=== PATIENT | female | born 1930 | race Caucasian/White ===

== ENCOUNTER 2016-08-06 03:49 | Inpatient (IN) ==
[2016-08-06] MEDS ORDERED: DUONEB (A & A) INH ONE ×2 (03:57→04:34)
[2016-08-06] MEDS ORDERED: ALBUTEROL NEB INH ONE ×2 (03:57→04:34)
[2016-08-06] MEDS ORDERED: SOLU-MEDROL IV ONE (03:58)
--- NOTE | 2016-08-06 04:05 | PROVIDER DOCUMENTATION ---
HPI-Respiratory General - General Chief Complaint: Anxiety Stated Complaint: anxiety, SOB Time Seen by Provider: 08/06/16 03:51 Source: patient, EMS Allergies/Adverse Reactions: Patient Allergies Allergy/AdvReac Type Severity Reaction Status Date / Time alendronate sodium AdvReac Unknown Verified 08/06/16 04:44 [From Fosamax] amoxicillin trihydrate * AdvReac Unknown Verified 08/06/16 04:44 [From Augmentin] cefdinir AdvReac Unknown Verified 08/06/16 04:44 celecoxib [From Celebrex] AdvReac Unknown Verified 08/06/16 04:44 doxycycline AdvReac Unknown Verified 08/06/16 04:44 ibandronate sodium AdvReac Unknown Verified 08/06/16 04:44 [From Boniva] levofloxacin [From Levaquin] AdvReac Unknown Verified 08/06/16 04:44 lovastatin AdvReac Unknown Verified 08/06/16 04:44 potassium clavulanate * AdvReac Unknown Verified 08/06/16 04:44 [From Augmentin] rosuvastatin calcium * AdvReac Unknown Verified 08/06/16 04:44 [From Crestor] Sulfa (Sulfonamide AdvReac Unknown Verified 08/06/16 04:44 Antibiotics) sulfamethoxazole AdvReac Unknown Verified 08/06/16 04:44 [From Bactrim] trimethoprim [From Bactrim] AdvReac Unknown Verified 08/06/16 04:44 Home Medications: Home Medication List Medication Instructions Recorded Confirmed Last Taken Type Fluticasone/Salmet 500/50 INH 1 inhaler INH BID 06/15/15 08/06/16 08/05/16 History [Advair 500/50 Diskus] Levothyroxine Sodium [Synthroid] 88 mcg PO DAILY 06/15/15 08/06/16 08/05/16 History Losartan [Cozaar] 50 mg PO DAILY 06/15/15 08/06/16 08/05/16 History Triamterene/Hctz [Maxzide-25] 0.5 tab PO DAILY #0 06/22/15 08/06/16 08/05/16 Rx Albuterol 2.5MG/Ipratrop 0.5MG 3 ml INH RTQ4H #90 neb 05/13/16 08/06/16 Rx [Duoneb (A & A)] Prednisone 5 mg PO DIRECTED #36 tablet 05/13/16 08/06/16 08/05/16 Rx Azithromycin [Azithromycin] 1 tab PO DAILY 08/06/16 08/06/16 08/05/16 History Losartan Potassium 1 tab PO DAILY 08/06/16 08/06/16 08/05/16 History - History of Present Illness-Resp Nature of Presenting Problem: pt states that she has had chest congestion for about a week and was put on an unknown antibiotic and steroids however despite this tonight she woke up just [employer] having great difficulty breathing. Ambulance gave pt an albuterol neb with transcient help. She does not believe that she has had fevers. No nausea. No chest pain or leg edema Review of Systems - Adult - REVIEW OF SYSTEMS - ADULT Constitutional: denies: chills, fever Eyes: denies: discharge Ears, Nose, Mouth & Throat: denies: ear pain, sinus problem, throat pain Cardiovascular: denies: chest pain, edema, syncope Respiratory: reports: cough, shortness of breath, wheezing. denies: excessive sputum production, pleurisy Gastrointestinal: denies: abdominal pain, diarrhea, nausea, vomiting Genitourinary: denies: dysuria, flank pain Musculoskeletal: denies: back pain Integumentary: denies: rash Neurological: denies: headache/migraines, numbness, paresthesia Psychiatric: reports: no symptoms reported Endocrine: reports: no symptoms reported Hematologic/Lymphatic: reports: no symptoms reported Allergic/Immunologic: reports: no symptoms reported All Other Systems: Reviewed and Negative Past History - Adult - PAST MEDICAL HISTORY-ADULT Review of Records: reports: Old Records Reviewed, Nursing Assessment Review, Medications Reviewed, Social history reviewed & non-contributory. Major Childhood Illnesses: reports: denies history Cardiovascular: reports: HTN Respiratory: reports: asthma Additional History: Breast cancer - PRIOR SURGERIES/PROCEDURES Surgical/Procedure History: reports: other (Mastectomy ) - PRIOR HOSPITALIZATIONS Prior Hospitalizations: reports: none - IMMUNIZATION STATUS Childhood Immunizations: See Nurse Assessment Flu Vaccine: See Nurse Assessment - FAMILY HISTORY Family History: reviewed, not pertinent - SOCIAL HISTORY Smoking: quit greater than 1 year (quit 25 years ago) Substance Use: none/never Living Situation: other (assisted living) Physical Exam-General - PHYSICAL EXAM-ADULT Initial Vital Signs Reviewed: Yes - CONSTITUTIONAL General Appearance: alert, moderate distress - EYES Eyes: pink conjunctivae. negative: scleral icterus - HEAD, EARS, NOSE, MOUTH & THROAT HENMT: normocephalic/atraumatic, TMs normal, pharynx normal - NECK Neck: non-tender, full range of motion, supple, normal inspection - RESPIRATORY Respiratory: chest non-tender, no pleuratic chest pain, respiratory distress ( moderate), accessory muscle use, wheezing, increased rate. negative: lungs clear, normal breath sounds, no respiratory distress, no accessory muscle use - CARDIOVASCULAR Cardiovascular: no edema, no murmur, tachycardia - GASTROINTESTINAL (ABDOMEN) Abdominal Exam: normal bowel sounds, non tender, soft, no organomegaly, no pulsatile mass - MUSCULOSKELETAL Back Exam: normal inspection, no CVA tenderness, no vertebral tenderness Extremity: non-tender, normal inspection, no pedal edema, no calf tenderness - SKIN Integumentary: normal color, normal turgor, warm/dry - NEUROLOGIC Neurologic: grossly normal, no motor/sensory deficits - PSYCHIATRIC Psych/Mental Status: normal mood/affect, normal thought content, normal thought process, oriented x 3 Progress - PLAN OF CARE/RESULTS Progress/Plan/Lab Results: Vital Signs - 8 hr 08/06/16 04:34 Temperature 98.0 F Pulse Rate 119 H Respiratory Rate 26 H Blood Pressure 140/80 O2 Sat by Pulse Oximetry 92 L Laboratory Results - last 24 hr 08/06/16 08/06/16 08/06/16 04:05 04:20 04:20 WBC 19.44 H RBC 4.37 Hgb 14.0 Hct 41.7 MCV 95.4 MCH 32.0 H MCHC 33.6 RDW Std Deviation 14.4 Plt Count 276 MPV 10.2 Immature Gran % (Auto) 0.4 Neut % (Auto) 62.7 Lymph % (Auto) 23.0 [place] % (Auto) 8.7 Eos % (Auto) 4.7 Baso % (Auto) 0.5 Immature Gran # (Auto) 0.08 H Neut # (Auto) 12.18 H Lymph # (Auto) 4.48 H [place] # (Auto) 1.70 H Eos # (Auto) 0.91 H Baso # (Auto) 0.09 Specimen Type ARTERIAL Sample Site R RADIAL pH 7.41 pCO2 45 pO2 58 L HCO3 27.2 H Base Excess 3.2 H Oxyhemoglobin 90.7 L ABG O2 Sat (Calculated) 18.3 ABG O2 Saturation 94.6 L ABG Carboxyhemoglobin 2.60 H ABG Methemoglobin 1.5 Guerrero Test YES A-a O2 Difference 114.0 Total Hemoglobin 14.4 Lactate 2.00 Liter Flow 3.0 Blood Gas Modality CANNULA FiO2 % 32.0 Sodium 141 Potassium 3.5 Chloride 100 Carbon Dioxide 26 Anion Gap 15 BUN 11 Creatinine 0.7 Estimated GFR/1.73 m2 > 60 BUN/Creatinine Ratio 16 Glucose 123 H Calculated Osmolality 282 Calcium 9.1 Total Bilirubin 0.80 AST 19 ALT 18 Alkaline Phosphatase 77 Troponin T Total Protein 7.3 Albumin 3.7 Globulin 3.6 Albumin/Globulin Ratio 1.0 08/06/16 04:20 WBC RBC Hgb Hct MCV MCH MCHC RDW Std Deviation Plt Count MPV Immature Gran % (Auto) Neut % (Auto) Lymph % (Auto) [place] % (Auto) Eos % (Auto) Baso % (Auto) Immature Gran # (Auto) Neut # (Auto) Lymph # (Auto) [place] # (Auto) Eos # (Auto) Baso # (Auto) Specimen Type Sample Site pH pCO2 pO2 HCO3 Base Excess Oxyhemoglobin ABG O2 Sat (Calculated) ABG O2 Saturation ABG Carboxyhemoglobin ABG Methemoglobin Guerrero Test A-a O2 Difference Total Hemoglobin Lactate Liter Flow Blood Gas Modality FiO2 % Sodium Potassium Chloride Carbon Dioxide Anion Gap BUN Creatinine Estimated GFR/1.73 m2 BUN/Creatinine Ratio Glucose Calculated Osmolality Calcium Total Bilirubin AST ALT Alkaline Phosphatase Troponin T < 0.010 Total Protein Albumin Globulin Albumin/Globulin Ratio Orders Category Date Time Status CHEST-PORTABLE [RAD] Stat Exams 08/06/16 03:58 Taken ABG [RESP] Routine Lab 08/06/16 04:02 Ordered ABG [RESP] Routine Lab 08/06/16 04:05 Completed BNP [PRO B-NATRIURETIC PEPTIDE] Stat Lab 08/06/16 04:20 Received CBC WITH ELECTRONIC DIFF [HEME] Stat Lab 08/06/16 04:20 Completed CMP [COMPREHENSIVE METABOLIC PANEL] [CHEM] Stat Lab 08/06/16 04:20 Completed LACTATE, PLASMA [CHEM] Stat Lab 08/06/16 04:20 Received TROPONIN T Stat Lab 08/06/16 04:20 Completed Albuterol 2.5MG/Ipratrop 0.5MG [Duoneb (A & A)] Med 08/06/16 03:57 Discontinued 3 ml INH NOW ONE Albuterol 2.5MG/Ipratrop 0.5MG [Duoneb (A & A)] Med 08/06/16 04:34 Discontinued 3 ml INH NOW ONE Albuterol [Albuterol Neb] Med 08/06/16 03:57 Discontinued 5 mg INH NOW ONE Albuterol [Albuterol Neb] Med 08/06/16 04:34 Discontinued 5 mg INH NOW ONE Levofloxacin 750 mg/D5w [Levaquin 750 mg/D5w] Med 08/06/16 05:02 Active 750 mg in 150 ml IV NOW Methylprednisolone Sod Succ [Solu-Medrol] Med 08/06/16 03:58 Discontinued 125 mg IV NOW ONE Aerosol Treatments Routine Ot 08/06/16 03:57 Active Aerosol Treatments Routine Ot 08/06/16 04:34 Active Aerosol Treatments Stat Ot 08/06/16 03:57 Active Aerosol Treatments Stat Ot 08/06/16 04:34 Active BIPAP Stat Ot 08/06/16 04:21 Active Result Diagrams: 08/06/16 04:20 08/06/16 04:20 - REASSESSMENT Reassessment #1 Time Reassessed: 04:36 (pt placed on BiPap which she is tolerating well and pt states is helping her breath easier, she still has marked wheezing present so another round of nebs ordered) Status: improving Reassessment #2 Time Reassessed: 05:03 (pt breathing easier, still wheezing but has improved) Status: improving - EKG 1 Time of EKG reading by physician:: 04:08 EKG Interpretation (*Must complete 3 of following elements*): Abnormal Rate: 117 Rhythm: sinus tach [place]: normal QRS: normal [place] Interval: normal ST Wave: non-specific ST changes - XRAY 1 XRAY Study: Chest Impression: Normal Departure - Departure Time of Disposition Decision: 05:03 DIAGNOSIS: COPD exacerbation Disposition: ADMITTED INPATIENT 09 Certified Medical Emergency: Emergent Condition: Fair Referrals and Follow-Ups: Surinder hCerry MD [Primary Care Provider] - - Critical Care Note This patient required my direct personal management.: No
[2016-08-06 04:15] LABS: ALLEN TEST YES; BE 3.2 mmoll (-3.0-3.0); BLOOD TYPE ARTERIAL; DRAW SITE R RADIAL; METHB 1.5 % (0.0-1.5); O2(CT) 18.3 mL/dL (15.0-23.0); PCO2(98.6) 45 mmHg (35-45); PO2(98.6) 58 mmHg (60-100); SAMPLE BLOOD; SAO2 94.6 % (95.0-100.0); THB 14.4 g/dL (11.5-17.4); pH(98.6) 7.41 (7.35-7.45)
[2016-08-06 04:16] LABS: MODALITY CANNULA
[2016-08-06 04:35] LABS: MANUAL DIFF NEEDED? NO
[2016-08-06 04:37] LABS: BASO% 0.5 % (0.0-0.8); EOS# 0.91 X1000 (0.0-0.7); EOS% 4.7 % (0.0-10.0); HEMATOCRIT 41.7 % (37.0-47.0); IMM GRAN# 0.08 X1000 (0.0-0.04); IMM GRAN% 0.4 % (0.0-0.5); LYMPH# 4.48 X1000 (1.2-3.4); MCHC 33.6 g/dL (33-37); MCV 95.4 FL (81-99); MONO% 8.7 % (1.7-9.3); MPV 10.2 FL (7.4-10.4); NEUT% 62.7 % (42.2-75.2); PLT 276 X1000 (130-400); RBC 4.37 XMIL (4.2-5.4)
[2016-08-06 05:01] LABS: AGAP 15; ALBUMIN 3.7 g/dL (3.5-5.0); ALKALINE PHOSPHATASE 77 U/L (32-104); BUN 11 mg/dL (8-22); CALCIUM 9.1 mg/dL (8.8-10.2); CHLORIDE 100 mmol/L (98-107); COSMO 282; GOT 19 U/L (10-30); GPT 18 U/L (10-36); POTASSIUM 3.5 mmol/L (3.5-5.1); SODIUM 141 mmol/L (136-145); TCO2 26 mmol/L (25-35); TOTAL PROTEIN 7.3 g/dL (6.3-8.3)
[2016-08-06] MEDS ORDERED: LEVAQUIN 750 MG/D5W 750 MG/150 ML IVPB IV ONE (05:02)
[2016-08-06] MEDS ORDERED: ZOFRAN IV PRN (06:20)
[2016-08-06] MEDS ORDERED: SOLU-MEDROL IV SCH (06:20)
[2016-08-06] MEDS: DUONEB (A & A) INH SCH ×4 (07:18→22:43)
[2016-08-06] MEDS: SYNTHROID PO SCH (07:32)
[2016-08-06] MEDS: COZAAR PO SCH (08:27)
--- NOTE | 2016-08-06 08:53 | HISTORY AND PHYSICAL ---
PRIMARY CARE PHYSICIAN: Dr. Surinder Cherry. CHIEF COMPLAINT: Shortness of breath. HISTORY OF PRESENTING ILLNESS: An 86-year-old elderly female with a history of chronic asthma, hypertension, hypogammaglobinemia and hypertriglyceridemia, presented to the emergency department with 1-week history of having worsening shortness of breath and cough symptoms. She was treated for bronchitis earlier in the week and was taking antibiotics and was on steroids; however, the patient was not improving. She was getting more short of breath and she states that she was having difficulty breathing and subsequently had come to the emergency department. In the ER, she was in respiratory distress. She was given continuous albuterol nebs and started on IV Solu- Medrol and put on BiPAP. She had some improvement. Due to her presenting symptoms, it was thought that she would need hospitalization for further management. At the time of my examination, she denied any headache, visual changes, fever, chills, chest pain , hemoptysis, melena, or any weight changes but complained of shortness of breath. PAST MEDICAL HISTORY: Chronic asthma, COPD, hypertension, hyperlipidemia, hypogammaglobulinemia. PAST SURGICAL HISTORY: Hysterectomy, left mastectomy, cholecystectomy, back surgeries x5, right knee replacement. ALLERGIES: Amoxicillin, Ceftin ER, Celebrex. CURRENT MEDICATIONS: As listed in the MAR. SOCIAL HISTORY: She is a former smoker. History of social alcohol use in the past. She denies any illicit drug use. She lives alone. FAMILY HISTORY: No history of coronary disease. REVIEW OF SYSTEMS: Twelve-point review of systems is as in the HPI. Other systems negative. PHYSICAL EXAMINATION: GENERAL: Cooperative, friendly, elderly female. She is in some mild-to- moderate respiratory distress. VITAL SIGNS: Temperature 98 degrees, pulse 119, respiration 26, blood pressure 140/80. She is saturating 92%. HEENT: Atraumatic, normocephalic. Extraocular movements intact. PERRLA. NECK: No masses. CHEST: Rhonchi. CARDIOVASCULAR: Regular rate and rhythm. ABDOMEN: Soft. Positive bowel sounds. EXTREMITIES: No edema. NEUROLOGIC: She is awake, alert, oriented x3. GENITOURINARY: No bladder distention. SKIN: Warm. LABORATORIES AND STUDIES: WBCs 19.44, hemoglobin 14.01, hematocrit 41.7, platelets 276,000. Sodium 141, potassium 3.5, chloride 100, CO2 is 26, BUN is 11, creatinine 0.7, glucose is 123. ASSESSMENT: An 86-year-old elderly female with a history of chronic asthma, chronic obstructive pulmonary disease, hypertension, hypogammaglobulinemia. She had presented to the emergency department with a 1-week history of having worsening shortness of breath and cough. She apparently had failed outpatient treatment and, subsequently, needs hospitalization for management. 1. Acute respiratory failure. 2. Acute chronic obstructive pulmonary disease exacerbation. 3. Hypertension. 4. h/o hypogammaglobinemia PLAN: 1. We will admit the patient to the medical floor with telemetry. 2. We will continue with BiPAP. 3. We will start the patient on IV Solu-Medrol, IV antibiotics and DuoNeb. 4. We will monitor blood pressure closely and resume antihypertensive agents. 5. Put patient on deep venous thrombosis prophylaxis with sequential compression devices. 6. We will continue to follow and reassess. cc: MD Surinder Rodriguez MD MTDD
[2016-08-06] MEDS: SOLU-MEDROL IV SCH ×2 (09:50→17:53)
--- NOTE | 2016-08-06 11:21 | Diag Imaging Result Document ---
PROCEDURE NAME: CHEST-PORTABLE - 08/06/2016 PORTABLE CHEST: COMPARISON: 05/11/2016. FINDINGS: Heart size is normal. There is some prominence of central markings which appears to be chronic. There is no dense consolidation, pleural effusion, or pneumothorax identified. Central venous catheter remains in place. IMPRESSION: Some prominence of central markings which appears to be chronic. No other evidence of acute disease.
--- NOTE | 2016-08-06 11:43 | PROGRESS NOTE ---
DATE: 08/06/[address] Cherry' patient and has been treated recently. Has had increased bronchospasm and increased cough and bronchial irritation, shortness of breath and it got worse last night. Came into the emergency room. She has remained afebrile. She feels like she is breathing a little better. She does have a deep raspy cough. You can hear some audible wheezing and expiratory wheezing.Vital signs: Temperature 98.2 degrees, pulse 108, respirations 35, blood pressure 120/77. HEENT: Pupils are equal round. CVP less than 6 cm. Lungs: Clear in all lung clemente. Cardiovascular: Regular rhythm and rate without murmur or S3. Abdomen: Soft. Skin: Is warm and dry. LAB: White count 74051, hematocrit 41, platelet count 276,000. She has been on prednisone. Normal differential. Sodium 141, potassium 3.5, chloride 100, bicarb 26, BUN 11, creatinine 0.7. Liver functions unremarkable. Albumin 3.6. Urinalysis unremarkable. Blood gas, pH 7.41, pCO2 45 with a PO2 of 58. That is on 32% FiO2. Chest x-ray, expanded lung clemente consistent with COPD. I do not see a definite infiltrate. Cardiomediastinal silhouette unremarkable. ASSESSMENT AND PLAN: 1. History of COPD. 86-year-old, chronic asthma, history of hypertension, hypogammaglobulinemia, hypertriglyceridemia. She has had a 1-week history of worsening shortness of breath, cough symptoms and followed by Dr. Cherry. Was taking antibiotics and steroids however seemed to get more short of breath. Plan to admit. Continue bronchodilators. She is on the Levaquin 500 mg IV daily. She is getting albuterol ipratropium, bronchodilators and she is on methylprednisone 60 mg IV q.8 hours. I will probably put her on a steroid inhaler as well. 2. Hypertension. Blood pressures appear well controlled. 3. Nutrition, looks good at this point. I suspect a major element is bronchitis with her deep raspy cough. cc: MD Surinder Naidu MD
[2016-08-06] MEDS: ADVAIR 250/50 DISKUS INH SCH ×2 (15:37→20:18)
[2016-08-06] MEDS: TESSALON PO PRN (20:37)
[2016-08-07] MEDS: TESSALON PO PRN ×4 (00:32→22:25)
[2016-08-07] MEDS: SOLU-MEDROL IV SCH ×3 (01:45→16:31)
[2016-08-07] MEDS: DUONEB (A & A) INH SCH ×2 (04:13→07:18)
[2016-08-07] MEDS: LEVAQUIN 500 MG/D5W 500 MG/100 ML IVPB IV SCH (05:40)
[2016-08-07] MEDS: SYNTHROID PO SCH ×2 (05:41→06:44)
[2016-08-07 05:56] LABS: BASO% 0.1 % (0.0-0.8); HEMATOCRIT 40.5 % (37.0-47.0); HEMOGLOBIN 13.6 g/dL (12.0-16.0); IMM GRAN# 0.07 X1000 (0.0-0.04); IMM GRAN% 0.5 % (0.0-0.5); LYMPH# 1.21 X1000 (1.2-3.4); LYMPH% 8.4 % (20.5-51.1); MANUAL DIFF NEEDED? YES; MCH 31.8 PG (27-31); MCHC 33.6 g/dL (33-37); MCV 94.6 FL (81-99); MONO# 0.69 X1000 (0.11-0.59); MONO% 4.8 % (1.7-9.3); NEUT% 86.2 % (42.2-75.2); PLT 295 X1000 (130-400); RBC 4.28 XMIL (4.2-5.4)
[2016-08-07 06:09] LABS: LYMPHS 10 % (21-51)
[2016-08-07 06:18] LABS: AGAP 15; BUN 14 mg/dL (8-22); CALCIUM 9.5 mg/dL (8.8-10.2); CHLORIDE 102 mmol/L (98-107); COSMO 288; POTASSIUM 4.1 mmol/L (3.5-5.1); SODIUM 142 mmol/L (136-145); TCO2 25 mmol/L (25-35)
[2016-08-07] MEDS: ADVAIR 250/50 DISKUS INH SCH ×2 (07:18→23:35)
[2016-08-07] MEDS ORDERED: NS NEB INH SCH ×2 (10:45→17:45)
[2016-08-07] MEDS: COZAAR PO SCH (11:16)
[2016-08-07] MEDS: XOPENEX NEB INH SCH ×4 (11:23→23:36)
[2016-08-07] MEDS: ATROVENT NEB INH SCH ×4 (11:23→23:35)
[2016-08-07] MEDS: HUMALOG SUBQ SCH ×4 (12:05→22:27)
--- NOTE | 2016-08-07 22:02 | PROGRESS NOTE ---
DATE: 08/07/2016 SUBJECTIVE: The patient's chart was reviewed. 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 Patient was seen in the emergency department and treated with albuterol nebulizer treatment, Solu-Medrol, and BiPAP. With aggressive measures, patient's overall condition has improved. This morning, the patient does continue to appear dyspneic. However, she states overall she has improved considerably from admission. She continues to have some wheezing but denies fevers, chills, nausea, and vomiting. Her cough remains intermittent. With minimal exertion, patient is profoundly short of breath. OBJECTIVE: Vital Signs: T-max is 98.4 degrees, heart rate 104-116, respirations 18-26, blood pressure 121-138/55-77. General: Elderly in no acute distress. Cardiovascular: Slightly tachycardic. Regular rhythm. No significant murmurs, rubs, or gallops. Pulmonary: Bilateral wheezing. Compromised air movement. Abdomen: Soft, nontender, nondistended. Positive bowel sounds. Extremities: Moves all extremities well. No significant clubbing, cyanosis, or edema. Dermatologic: Evaluation reveals no evidence of rash. LABORATORY DATA: White blood cell count 14.44, hemoglobin 13.6, hematocrit 40.5, platelet count 295,000. Sodium 142, potassium 4.1, chloride 102, bicarb 25, BUN 14, creatinine 0.7, glucose 178. ASSESSMENT AND PLAN: 1. Acute exacerbation of chronic obstructive pulmonary disease - The patient has longstanding disease with multiple exacerbations. It appears the patient again experienced a significant exacerbation requiring emergent hospitalization. On examination today, patient continues to have wheezing, although per her description, this has improved. We will transition patient from Solu-Medrol 60 mg every 8 hours to 80 mg every 8 hours. We will convert the patient from albuterol to Xopenex as she has had difficulty tolerating albuterol in the past. We will encourage incentive spirometry. We will continue levofloxacin therapy. We will consider whether a CT scan evaluation is appropriate depending on her progression while hospitalized. We will remain aware that with the patient's deconditioned state, she is less ambulatory than previous. This certainly would increase her risk for underlying pulmonary thromboembolism. 2. Hypoxia - We will continue oxygen per protocol. The patient's oxygen demands have increased above her baseline. We will follow this. 3. Hypogammaglobulinemia - Patient is currently being treated with outpatient IVIG. We will remain aware. 4. Impaired fasting glucose/hyperglycemia - The patient's blood sugars are elevated today, likely secondary to steroid intervention. We will start sliding scale insulin. 5. Hypertension - We will continue patient on her home regimen. 6. Persistent cough. - This likely is a bronchospasm equivalent. We will treat aggressively as above. 7. Hypothyroidism - We will continue her home regimen. 8. Disposition - At this point, patient continues to require usp care in the hospital setting. We will plan discharge home once appropriate. cc: Surinder Cherry MD
[2016-08-08] MEDS: SOLU-MEDROL IV SCH ×3 (02:32→16:47)
[2016-08-08] MEDS: ATROVENT NEB INH SCH ×7 (02:44→23:29)
[2016-08-08] MEDS: XOPENEX NEB INH SCH ×7 (02:45→23:30)
[2016-08-08] MEDS: LEVAQUIN 500 MG/D5W 500 MG/100 ML IVPB IV SCH (05:11)
[2016-08-08] MEDS: SYNTHROID PO SCH ×2 (05:11→08:55)
[2016-08-08] MEDS: HUMALOG SUBQ SCH ×4 (06:16→20:10)
[2016-08-08] MEDS: ADVAIR 250/50 DISKUS INH SCH ×2 (07:10→19:30)
[2016-08-08] MEDS: COZAAR PO SCH (08:54)
[2016-08-08] MEDS: LOVENOX SUBQ SCH (08:54)
[2016-08-08] MEDS: MYCOSTATIN SUSP PO SCH ×4 (10:11→20:08)
[2016-08-08] MEDS: TESSALON PO PRN ×2 (14:54→22:04)
--- NOTE | 2016-08-08 16:34 | EKG Report ---
Test Performed on : 08/06/2016 04:07:54 AM Test Reason : ED. Not ordered in [place] Blood Pressure : / mmHG Vent. Rate : 117 BPM Atrial Rate : 117 BPM P-R Int : 138 ms QRS Dur : 074 ms QT Int : 340 ms P-R-T Axes : 081 034 077 degrees QTc Int : 474 ms Sinus tachycardia. Nonspecific ST and T wave abnormality Abnormal ECG When compared with ECG of 14-MAY-2011 18:01, ST now depressed in Inferior leads Nonspecific T wave abnormality now evident in Inferior leads Unconfirmed Result
[2016-08-08] MEDS: XOPENEX NEB INH PRN (17:56)
--- NOTE | 2016-08-08 21:17 | CONSULTATION ---
DATE OF CONSULTATION: 08/08/2016 REQUESTING PHYSICIAN: Dr. Surinder Cherry. REASON FOR CONSULTATION: Asthma exacerbation. HISTORY OF PRESENT ILLNESS: Ms. Jerome is an 86-year-old white female with remote history of tobacco use, history of adult-onset asthma, history of common variable immunodeficiency, on immunoglobulin replacement, who requires frequent courses of steroids and antibiotics. The patient has multiple drug allergens,including amoxicillin, Ceftin, Bactrim, and doxycycline. The patient recently failed outpatient course of treatment, and presented to the emergency room with acute respiratory distress requiring BiPAP. She was initiated on steroids and antibiotics while on nebulizer therapy. Clinically, she is improving, but has dyspnea with minimal exertion. She reports she has not yet returned to her baseline. PAST MEDICAL HISTORY: 1. Asthma with hypogammaglobulinemia. She is on replacement therapy every 3 weeks. 2. Hypertension. 3. Dyslipidemia. 4. Status post multiple back surgeries. 5. Breast cancer, with mastectomy. 6. Status post hysterectomy. SOCIAL HISTORY: Patient smoked for approximately 5 years. Occasional alcohol use. FAMILY HISTORY: Noncontributory to current presentation. REVIEW OF SYSTEMS: Notable for shortness of breath, cough productive of copious amounts of green sputum which has diminished, dysphagia, which is improving with nystatin. PHYSICAL EXAMINATION: General: Reveals a chronically ill-appearing white female, resting comfortably, and in no distress. Vital Signs: Blood pressure 122/60, heart rate 103, respiration rate 16, oxygen saturation 96% on nasal cannula at 5 L. HEENT: Pupils are equal and reactive. Oropharynx is clear. No obvious thrush is identified. Neck: Supple. Chest: Reveals prolonged expiratory phase, with scattered wheezing. Cardiac: Regular rate. Abdomen: Soft, and without hepatosplenomegaly. Extremities: Without edema. LABORATORY STUDIES: All sputum cultures from the past have been reviewed, and only revealed normal kyle. Chest x-ray revealed prominence of the central vascular markings, but no acute changes. 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 Her sputum production has diminished, but has not completely resolved. Her bronchospasm has diminished, but has not completely resolved. She has some dysphagia, possibly related to candidal esophagitis. RECOMMENDATIONS: 1. Attempt to collect sputum for culture and sensitivity. She is not currently receiving a Gram positive coverage, and is allergic to both doxycycline and Bactrim. 2. Continue bronchodilators as you are doing. 3. Continue steroids as you are doing. 4. Will check an immunoglobulin level to see if she is deficient. She is currently receiving doses every 3 weeks. If the level is low, she might need this supplemented. 5. Additional recommendations pending hospital course. cc: MD Surinder Cheng MD
--- NOTE | 2016-08-08 23:07 | PROGRESS NOTE ---
DATE: 08/08/2016 SUBJECTIVE: Overall, patient's condition is very slowly improving. Patient continues to have a persistent cough but notes a decrease in shortness of breath and wheezing. Energy level remains low. Her p.o. intake is reasonable. She denies fevers, chills, nausea, vomiting or chest discomfort. OBJECTIVE: Vital signs: T-max 98.3 degrees, heart rate 91-110, respirations 16-20, blood pressure 122-163 over 60-81. General: Elderly, no acute distress. Cardiovascular: Regular rate and rhythm. No significant murmurs, rubs or gallops. Pulmonary: Occasional wheezing bilaterally, reasonable air movement. Abdomen: Soft, nontender, nondistended. Positive bowel sounds. Extremities: Moves all extremities well. No significant clubbing, cyanosis, edema. Dermatologic: Evaluation reveals no evidence of rash. LABORATORY DATA: None. ASSESSMENT AND PLAN: 1. Acute exacerbation of chronic obstructive pulmonary disease-patient has longstanding disease. Her overall pulmonary function has improved slightly since admission. For now, we will continue patient on Solu-Medrol 80 mg every 8 hours. We will continue levofloxacin as she is tolerating this well. We will consult Dr. Love to determine if further pulmonary recommendations are appropriate. We will follow patient's clinical course closely. 2. Hypoxia-will continue oxygen per protocol. We will remain aware. 3. Hypogammaglobulinemia-patient treated with outpatient IVIG. We will follow this. 4. Impaired fasting glucose/hyperglycemia-with steroid therapy patient's glucose has increased. We will continue sliding scale insulin. 5. Hypertension-will continue patient on her home regimen. 6. Persistent cough-we will treat bronchospasm as described above. We will continue Tessalon Perles as needed. 7. Hypothyroidism-we will continue patient on her home regimen. 8. Disposition-at this point, patient continues to require [facility]pc care in the hospital setting. We will plan discharge home once appropriate. cc: Surinder Cherry MD
[2016-08-09] MEDS: SOLU-MEDROL IV SCH ×3 (02:25→16:39)
[2016-08-09] MEDS: ATROVENT NEB INH SCH ×6 (03:21→22:50)
[2016-08-09] MEDS: XOPENEX NEB INH SCH ×6 (03:22→22:50)
[2016-08-09] MEDS: LEVAQUIN 500 MG/D5W 500 MG/100 ML IVPB IV SCH (06:29)
[2016-08-09] MEDS: SYNTHROID PO SCH (06:30)
[2016-08-09] MEDS: HUMALOG SUBQ SCH ×4 (06:51→22:53)
[2016-08-09] MEDS: ADVAIR 250/50 DISKUS INH SCH ×2 (08:00→19:25)
[2016-08-09] MEDS: LOVENOX SUBQ SCH (09:23)
[2016-08-09] MEDS: MYCOSTATIN SUSP PO SCH ×4 (09:24→22:53)
[2016-08-09] MEDS: COZAAR PO SCH (09:25)
[2016-08-09] MEDS: TESSALON PO PRN ×2 (14:24→18:47)
--- NOTE | 2016-08-09 22:14 | PROGRESS NOTE ---
DATE: 08/09/2016 SUBJECTIVE: This morning, patient stated she felt poorly. She noted coughing throughout the night. Throughout the day today patient did reasonably well. This evening, she denies significant symptoms. She continues to have cough and congestion, although this is improving. Her shortness of breath also is improving. She remains weak, but is able to ambulate to and from the restroom. She denies fevers, chills, nausea, vomiting, or chest discomfort. OBJECTIVE: Vital signs: Temperature maximum 98.2 degrees, heart rate 91-111, respirations 15- 24, blood pressure 128-145/65-87. General: Elderly, no acute distress. Cardiovascular: Regular rate and rhythm. No significant murmurs, rubs, or gallops. Pulmonary: Minimal wheezing bilaterally. Adequate air movement. Abdomen: Soft, nontender, nondistended. Positive bowel sounds. Extremities: Moves all extremities well. No significant clubbing, cyanosis, or edema. Dermatologic: Evaluation reveals no evidence of rash. LABORATORY DATA: None. PLAN/ASSESSMENT: 1. Acute exacerbation of chronic obstructive pulmonary disease-today, patient pulmonary status has failed to show significant improvement. For now, we will continue high-dose steroids. We will continue levofloxacin and bronchodilators. As patient's overall condition improves, we will consider titrating down on steroid therapy. I appreciate Dr. Love's consultation. 2. Hypoxia-we will continue patient on oxygen per protocol. She is stable. 3. Hypogammaglobulinemia-immunoglobin levels have been ordered by Dr. Love. We will follow along. 4. Impaired fasting glucose-patient's blood sugars have increased secondary to steroids. We will continue sliding scale insulin. 5. Persistent cough-I suspect the bronchospasm equivalent. We will treat bronchospasm aggressively as noted. 6. Hypothyroidism-we will continue patient on replacement. 7. Disposition-at this point, patient continues to require retirement care in a hospital setting. We will plan discharge home once appropriate. cc: Surinder Cherry MD
[2016-08-10] MEDS: XOPENEX NEB INH SCH ×6 (03:10→22:55)
[2016-08-10] MEDS: ATROVENT NEB INH SCH ×6 (03:10→22:55)
[2016-08-10] MEDS: SOLU-MEDROL IV SCH ×3 (03:58→17:09)
[2016-08-10] MEDS: LEVAQUIN 500 MG/D5W 500 MG/100 ML IVPB IV SCH (06:20)
[2016-08-10] MEDS: SYNTHROID PO SCH (06:21)
[2016-08-10] MEDS: HUMALOG SUBQ SCH ×4 (06:21→22:33)
[2016-08-10] MEDS: ADVAIR 250/50 DISKUS INH SCH ×2 (07:23→19:05)
[2016-08-10] MEDS: LOVENOX SUBQ SCH (08:45)
[2016-08-10] MEDS: COZAAR PO SCH (08:45)
[2016-08-10] MEDS: MYCOSTATIN SUSP PO SCH ×4 (08:45→22:34)
[2016-08-10] MEDS: TESSALON PO PRN ×2 (09:51→22:33)
--- NOTE | 2016-08-10 18:38 | PROGRESS NOTE ---
DATE: 08/10/2016 SUBJECTIVE: The patient's overall condition continues to very slowly improve. Patient continues to have a persistent cough. She notes continued bronchospasm. She did walk with physical therapy today. She did reasonably well. She denies fevers, chills, nausea, vomiting, or chest discomfort. She does note persistent shortness of breath. OBJECTIVE: Vital signs: T-max is 98.2 degrees, heart rate 95-101, respirations 16-20, blood pressure 125-164 over 57-87. General: Elderly, no acute distress. Cardiovascular: Regular rate and rhythm. No significant murmurs, rubs, or gallops. Pulmonary: Coarse breath sounds with wheezing bilaterally. There does appear to be upper airway rhonchi as well. Abdomen: Soft, nontender, nondistended. Positive bowel sounds. Extremities: Moves all extremities well. No significant clubbing, cyanosis, or edema. Dermatologic: Evaluation reveals no evidence of rash. LABORATORY DATA: None. ASSESSMENT AND PLAN: 1. Acute exacerbation of chronic obstructive pulmonary disease - Patient's overall condition is largely unchanged from yesterday. For now, we will continue high dose steroids, levofloxacin, and bronchodilators. I appreciate Dr. Love's consultation. Once patient's condition begins improving, we will initiate steroid taper. 2. Questionable upper airway irritation/obstruction - While the patient does not have a true stridor, patient does have some upper airway symptoms. We will continue nystatin swish and swallow. We will consider an ENT consultation or outpatient evaluation depending on her progress. 3. Hypoxia - Will continue oxygen per protocol. 4. Hypogammaglobulinemia - Patient has longstanding disease. We will remain aware. 5. Impaired fasting glucose - The patient's blood sugars have increased secondary to steroid use. We will continue sliding scale insulin. 6. Persistent cough - I suspect this is a bronchospasm equivalent. We will remain aware that a laryngeal or posterior pharyngeal lesion could also be playing a role. We will continue aggressive management and consider ENT evaluation as an outpatient. 7. Hypothyroidism - We will continue patient on replacement. 8. Disposition - At this point, patient continues to require skilled nurse care in the hospital setting. We will plan discharge home once appropriate. cc: Surinder Cherry MD
[2016-08-10] MEDS ORDERED: DIFLUCAN 100 MG/NS 100 MG/50 ML IVPB IV SCH (21:00)
[2016-08-10] MEDS: DIFLUCAN 100 MG/NS 100 MG/50 ML IVPB IV SCH (22:33)
[2016-08-11] MEDS: SOLU-MEDROL IV SCH ×3 (01:30→17:37)
[2016-08-11] MEDS: ATROVENT NEB INH SCH ×6 (03:25→23:23)
[2016-08-11] MEDS: XOPENEX NEB INH SCH ×6 (03:25→23:23)
[2016-08-11] MEDS: SYNTHROID PO SCH (06:27)
[2016-08-11] MEDS: HUMALOG SUBQ SCH ×4 (06:27→22:35)
[2016-08-11] MEDS: LEVAQUIN 500 MG/D5W 500 MG/100 ML IVPB IV SCH (06:27)
[2016-08-11] MEDS: ADVAIR 250/50 DISKUS INH SCH ×2 (07:39→19:52)
[2016-08-11] MEDS: LOVENOX SUBQ SCH (08:57)
[2016-08-11] MEDS: MYCOSTATIN SUSP PO SCH ×5 (08:57→22:40)
[2016-08-11] MEDS: COZAAR PO SCH (08:57)
[2016-08-11] MEDS: TESSALON PO PRN ×2 (09:22→13:27)
--- NOTE | 2016-08-11 21:24 | PROGRESS NOTE ---
DATE: 08/11/2016 SUBJECTIVE: Overall, patient continues to very slowly improve. This morning, patient complained of persistent dysphagia. Throughout the day with dietary changes, her condition has improved. She continues to have intermittent wheezing, but this also is improving. This morning, we decreased her Solu-Medrol to 40 mg q.8 hours. This evening, her condition is stable. She denies fevers, chills, nausea, vomiting, or chest discomfort. OBJECTIVE: Vital Signs: T-max 98.7 degrees, heart rate 79-101, respirations 16 -20, blood pressure 135-184/60-78. General: Elderly in no acute distress. Cardiovascular : Regular rate and rhythm. No significant murmurs, rubs, or gallops. Pulmonary: Bilateral wheezing, improved from yesterday. Adequate air movement. Abdomen: Soft, nontender, nondistended. Positive bowel sounds. Extremities: Moves all extremities well. No significant clubbing, cyanosis, or edema. Dermatologic: Evaluation reveals no evidence of a rash. LABORATORY DATA: None. ASSESSMENT AND PLAN: 1. Acute exacerbation of chronic obstructive pulmonary disease -Overall, patient 's condition continues to very slowly improve. As above, a steroid taper was initiated. She tolerated Solu-Medrol 40 mg q.8 hours. We will continue antibiotics and bronchodilators. We will monitor patient for the next 24 hours and determine if further titration is warranted. 2. Questionable upper airway irritation/obstruction - The patient is currently being treated with Nystatin Swish and Swallow, and Diflucan therapy. Her condition is slightly improved from yesterday. I have stressed the importance of aspiration precautions. We will consider an ENT consultation as an outpatient. 3. Hypoxia - We will continue oxygen per protocol. 4. Hypogammaglobulinemia - Patient has longstanding disease. We will remain aware. 5. Impaired fasting glucose - The patient's blood sugars have been elevated with steroid therapy. We will continue sliding scale insulin. 6. Hypothyroidism - We will continue patient on replacement. 7. Disposition - At this point, patient continues to require halfway care in a hospital setting. We will plan discharge home once appropriate. cc: Surinder Cherry MD MTDD
[2016-08-11] MEDS: DIFLUCAN 100 MG/NS 100 MG/50 ML IVPB IV SCH (22:35)
[2016-08-12] MEDS: SOLU-MEDROL IV SCH ×2 (02:01→16:11)
[2016-08-12] MEDS: XOPENEX NEB INH SCH ×6 (03:25→23:02)
[2016-08-12] MEDS: ATROVENT NEB INH SCH ×6 (03:25→23:02)
[2016-08-12] MEDS: LEVAQUIN 500 MG/D5W 500 MG/100 ML IVPB IV SCH (05:44)
[2016-08-12] MEDS: SYNTHROID PO SCH (06:23)
[2016-08-12] MEDS: HUMALOG SUBQ SCH ×4 (06:25→22:02)
--- NOTE | 2016-08-12 06:56 | EKG Report ---
Test Performed on : 08/12/2016 06:38:42 AM Test Reason : evaluated qtc Blood Pressure : / mmHG Vent. Rate : 093 BPM Atrial Rate : 093 BPM P-R Int : 134 ms QRS Dur : 088 ms QT Int : 376 ms P-R-T Axes : 053 -02 053 degrees QTc Int : 467 ms Normal sinus rhythm. Normal ECG When compared with ECG of 06-AUG-2016 04:07, ST no longer depressed in Inferior leads Nonspecific T wave abnormality no longer evident in Inferior leads Confirmed by Claudia KAPLAN, Benito Tolbert ([id number]) on 08/12/2016 9:04:57 AM
[2016-08-12] MEDS: ADVAIR 250/50 DISKUS INH SCH ×2 (08:02→19:17)
[2016-08-12] MEDS: LOVENOX SUBQ SCH (10:19)
[2016-08-12] MEDS: COZAAR PO SCH (10:19)
[2016-08-12] MEDS: MYCOSTATIN SUSP PO SCH ×4 (10:20→22:02)
--- NOTE | 2016-08-12 21:27 | PROGRESS NOTE ---
DATE: 08/12/2016 SUBJECTIVE: Overall, patient's pulmonary condition continues to very slowly improve. The patient continues to have a persistent cough but her shortness of breath and wheezing are improving. Her dysphagia has shown clinical improvement. She denies fevers, chills, nausea, vomiting or chest discomfort. OBJECTIVE: Vital signs: Temperature maximum 98.4 degrees, heart rate 85-107, respirations 17- 22, blood pressure 119-153 over 60-87. General: Elderly, no acute distress. Cardiovascular: Regular rate and rhythm. No significant murmurs, rubs, or gallops. Pulmonary: Distant breath sounds. Occasional wheeze. Abdomen: Soft, nontender, nondistended. Positive bowel sounds. Extremities: Moves all extremities well. No significant clubbing, cyanosis or edema. Dermatologic: Evaluation reveals no evidence of rash. LABORATORY DATA: None. ASSESSMENT AND PLAN: 1. Acute exacerbation of chronic obstructive pulmonary disease- this morning because of the further improvement patient's Solu-Medrol was decreased to 40 mg every 12 hours. This evening patient does have a slight increase in wheezing. For now, we will continue this regimen. We will continue antibiotics and bronchodilators. Will encourage incentive spirometry. We will follow her clinical course closely. 2. Questionable upper airway irritation/obstruction-patient is currently being treated with nystatin swish and swallow and Diflucan therapy. Her condition with associated dysphagia has improved clinically. We will consider ENT evaluation as an outpatient. 3. Hypoxia-we will continue oxygen per protocol. 4. Hypogammaglobulinemia-patient has longstanding disease. We will remain aware. 5. Impaired fasting glucose-the patient's blood sugars have increased associated with steroid use. We will continue sliding scale insulin. 6. Hypothyroidism-we will continue patient on replacement. 7. Profound weakness-we will continue physical therapy. Her condition is slowly improving. 8. Disposition-at this point, patient continues to require [facility] care in the hospital setting. We will plan discharge home once appropriate. cc: Surinder Cherry MD MTDD
[2016-08-12] MEDS: DIFLUCAN 100 MG/NS 100 MG/50 ML IVPB IV SCH (22:01)
[2016-08-13] MEDS: SOLU-MEDROL IV SCH ×2 (02:23→14:51)
[2016-08-13] MEDS: ATROVENT NEB INH SCH ×6 (03:20→22:58)
[2016-08-13] MEDS: XOPENEX NEB INH SCH ×6 (03:20→22:58)
[2016-08-13] MEDS: LEVAQUIN 500 MG/D5W 500 MG/100 ML IVPB IV SCH (05:19)
[2016-08-13] MEDS: SYNTHROID PO SCH (06:25)
[2016-08-13] MEDS: HUMALOG SUBQ SCH ×4 (06:26→21:30)
[2016-08-13] MEDS: ADVAIR 250/50 DISKUS INH SCH ×2 (08:05→19:14)
[2016-08-13] MEDS: XOPENEX NEB INH PRN (08:05)
[2016-08-13] MEDS: COZAAR PO SCH (09:45)
[2016-08-13] MEDS: LOVENOX SUBQ SCH (09:45)
[2016-08-13] MEDS: MYCOSTATIN SUSP PO SCH ×4 (11:26→21:30)
--- NOTE | 2016-08-13 13:33 | PROGRESS NOTE ---
DATE: 08/13/2016 SUBJECTIVE: As on previous days, patient's condition continues to very slowly improve. The patient notes decreasing coughing over the course of the last 24 hours. She does continue to be very weak. She has intermittent wheezing. She denies fevers, chills, nausea, vomiting, or chest discomfort. OBJECTIVE: Vital signs: T-max 98.4 degrees, heart rate 84-111, respirations 15-18, blood pressure 131-179 over 59-87. General: Elderly, no acute distress. Cardiovascular: Regular rate and rhythm. No significant murmurs, rubs, or gallops. Pulmonary: Occasional wheeze bilaterally. Abdomen: Soft, nontender, nondistended. Positive bowel sounds. Extremities: Moves all extremities well. No significant clubbing, cyanosis, or edema. Dermatologic: Evaluation reveals no evidence of rash. LABORATORY DATA: None. ASSESSMENT AND PLAN: 1. Acute exacerbation of chronic obstructive pulmonary disease-the patient's overall condition is fairly stable from yesterday. She does continue to have intermittent wheezing. At this point, I do not feel tapering Solu-Medrol is appropriate. We will continue 40 mg IV q.12 hours. I anticipate in the next 24-48 hours we will transition to prednisone and pursue discharge home or to rehab. We will continue bronchodilators and antibiotic therapy. 2. Questionable upper airway irritation/obstruction-we will continue patient on nystatin swish and swallow and Diflucan therapy. Clinically, she is slowly improving. 3. Hypoxia-we will continue oxygen per protocol. 4. Hypogammaglobulinemia-patient has longstanding disease. We will remain aware. 5. Impaired fasting glucose-patient's blood sugars have been elevated while on steroids. We will continue sliding scale insulin. 6. Hypothyroidism-we will continue patient on replacement. 7. Profound weakness-we will continue patient on physical therapy. At this point, patient may require discharge to rehabilitation. We will determine this in the next 24-48 hours. 8. Disposition-at this point, patient continues to require prison care in a hospital setting. We will plan discharge home once appropriate. cc: Surinder Cherry MD
[2016-08-13] MEDS: DIFLUCAN 100 MG/NS 100 MG/50 ML IVPB IV SCH (21:30)
[2016-08-14] MEDS: SOLU-MEDROL IV SCH (02:22)
[2016-08-14] MEDS: XOPENEX NEB INH SCH ×6 (03:03→22:39)
[2016-08-14] MEDS: ATROVENT NEB INH SCH ×6 (03:03→22:39)
[2016-08-14] MEDS: LEVAQUIN 500 MG/D5W 500 MG/100 ML IVPB IV SCH (06:01)
[2016-08-14] MEDS: SYNTHROID PO SCH (06:01)
[2016-08-14] MEDS: HUMALOG SUBQ SCH ×3 (06:06→16:45)
[2016-08-14] MEDS: ADVAIR 250/50 DISKUS INH SCH ×2 (07:42→18:53)
[2016-08-14] MEDS ORDERED: PREDNISONE PO ONE (09:53)
--- NOTE | 2016-08-14 10:27 | PROGRESS NOTE ---
DATE: 08/14/2016 SUBJECTIVE: Overall, patient continues to very slowly improve. She continues to have cough; however, the frequency has decreased. Her shortness of breath is improving. She has worked with physical therapy. Her walking is unsteady but slowly improving. Her p.o. intake is reasonable. The patient notes her dysphagia has improved, but not resolved with time. She denies fevers, chills, nausea, vomiting, or chest discomfort. OBJECTIVE: Vital Signs: T-max 98.8 degrees, heart rate 82-103, respirations 17-20, blood pressure 117-165/60-96. General: Elderly, no acute distress. Cardiovascular: Regular rate and rhythm. No significant murmurs, rubs, or gallops. Pulmonary: Rare wheezing. Improved air movement. Abdomen: Soft, nontender, nondistended. Positive bowel sounds. Extremities: Moves all extremities well. No significant clubbing, cyanosis, or edema. Dermatologic: Evaluation reveals no evidence of rash. Laboratory Data: None. ASSESSMENT AND PLAN: 1. Acute exacerbation of chronic obstructive pulmonary disease-patient's condition continues to very slowly improve. We will transition patient from intravenous Solu-Medrol to prednisone therapy. We will continue bronchodilators and antibiotics. Should her condition continue to improve, we will consider discharge home or to rehabilitation tomorrow. 2. Questionable upper airway irritation/obstruction-patient has achieved improvement, although not resolution with Diflucan and nystatin therapy. For now, we will continue current regimen. We will encourage aspiration precautions. 3. Hypoxia-the patient continues to require oxygen per protocol. At home, she uses oxygen only at nighttime. We will plan to transition patient today as tolerated. 4. Hypogammaglobulinemia-patient has longstanding disease. We will remain aware. 5. Impaired fasting glucose-patient's blood sugars have been monitored with sliding scale insulin while hospitalized. We will remain aware. 6. Hypothyroidism-we will continue patient on replacement. 7. Profound weakness-as above, patient currently is being treated with physical therapy. We will determine if home health or rehabilitation is most appropriate tomorrow. We will continue to encourage activity. 8. Disposition-at this point, patient continues to require [facility] care in a hospital setting. We will plan discharge home once appropriate. cc: Surinder Cherry MD
[2016-08-14] MEDS: COZAAR PO SCH (11:49)
[2016-08-14] MEDS: LOVENOX SUBQ SCH (11:49)
[2016-08-14] MEDS: MYCOSTATIN SUSP PO SCH ×3 (11:49→16:19)
[2016-08-15] MEDS: XOPENEX NEB INH SCH ×6 (03:31→23:25)
[2016-08-15] MEDS: ATROVENT NEB INH SCH ×6 (03:31→23:25)
[2016-08-15] MEDS: HUMALOG SUBQ SCH ×5 (05:31→21:18)
[2016-08-15] MEDS: DIFLUCAN 100 MG/NS 100 MG/50 ML IVPB IV SCH ×2 (05:31→21:18)
[2016-08-15] MEDS: LEVAQUIN 500 MG/D5W 500 MG/100 ML IVPB IV SCH (06:14)
[2016-08-15] MEDS: SYNTHROID PO SCH (06:15)
[2016-08-15] MEDS: MYCOSTATIN SUSP PO SCH ×5 (06:48→21:17)
[2016-08-15] MEDS: ADVAIR 250/50 DISKUS INH SCH ×2 (07:25→19:46)
[2016-08-15] MEDS ORDERED: PREDNISONE PO ONE (08:26)
[2016-08-15] MEDS: LOVENOX SUBQ SCH (08:52)
[2016-08-15] MEDS: COZAAR PO SCH (08:52)
--- NOTE | 2016-08-15 22:00 | PROGRESS NOTE ---
DATE: 08/15/2016 SUBJECTIVE: Patient's condition continues to very slowly improve. The patient continues to have intermittent cough and weakness, although she did walk reasonably well with Physical Therapy. She denies fevers, chills, nausea, vomiting, or chest discomfort. She has some shortness of breath with exertion, however, oxygen remains reasonably controlled with supplementation. OBJECTIVE: Vital Signs: T-max is 99.0 degrees, heart rate 84-99, respirations 16-20, blood pressure 120-157/55-75. General: Elderly, in no acute distress. Cardiovascular: Regular rate and rhythm. No significant murmurs, rubs, or gallops. Pulmonary: Mild, occasional wheezing, adequate air movement. Abdomen: Soft, nontender, nondistended. Positive bowel sounds. Extremities: Moves all extremities well. No significant clubbing, cyanosis, or edema. Dermatologic: Evaluation reveals no evidence of rash. LABORATORY DATA: None. ASSESSMENT AND PLAN: 1. Acute exacerbation of chronic obstructive pulmonary disease - Patient was transitioned to oral prednisone. Thus far, she is tolerating it reasonably well. She is having intermittent cough and minimal wheezing. For now, we will continue her current regimen with plan to discharge home in the a.m. with home health. 1. Questionable upper airway irritation/obstruction - She has, however, not achieved resolution. We will consider ENT evaluation as an outpatient. We will continue to encourage aspiration precautions. The patient is being treated with oxygen per protocol. We will continue this. 2. Hypogammaglobulinemia - We will remain aware. 3. Impaired fasting glucose - The patient is currently being treated with sliding scale insulin secondary to blood sugar elevations in the setting of steroids. We will follow this. 4. Hypothyroidism - We will continue patient on replacement. 5. Profound weakness - At the present time this is a limiting factor. She walked reasonably well with Physical Therapy. I suspect if patient continues to improve, we can discharge home with home health. We will encourage activity. 6. Disposition - As above, I anticipate discharge home in the a.m. should her condition continue to improve. cc: Surinder Cherry MD
[2016-08-16] MEDS: ATROVENT NEB INH SCH ×3 (03:14→11:50)
[2016-08-16] MEDS: XOPENEX NEB INH SCH ×3 (03:14→11:50)
[2016-08-16] MEDS: SYNTHROID PO SCH (06:12)
[2016-08-16] MEDS: LEVAQUIN 500 MG/D5W 500 MG/100 ML IVPB IV SCH (06:12)
[2016-08-16] MEDS: HUMALOG SUBQ SCH ×2 (06:33→11:34)
[2016-08-16] MEDS: ADVAIR 250/50 DISKUS INH SCH (08:12)
[2016-08-16] MEDS ORDERED: PREDNISONE PO ONE (08:40)
[2016-08-16] MEDS: COZAAR PO SCH (09:31)
[2016-08-16] MEDS: LOVENOX SUBQ SCH (09:31)
[2016-08-16] MEDS: MYCOSTATIN SUSP PO SCH ×2 (09:32→12:29)
[2016-08-16 14:33] VITALS: BP 132/62
--- NOTE | 2016-08-17 04:48 | DISCHARGE SUMMARY ---
ADMISSION DATE: 08/06/2016 DISCHARGE DATE: 08/16/2016 ADMISSION DIAGNOSIS: Shortness of breath. DISCHARGE DIAGNOSES: 1. Acute respiratory failure secondary to acute exacerbation of chronic obstructive pulmonary disease. 2. Questionable upper airway irritation/obstruction responding to antifungal treatment. 3. Hypogammaglobulinemia, present on arrival. 4. Impaired fasting glucose, present on arrival. 5. Hypothyroidism, present on arrival. 6. Profound weakness. CONSULTATIONS: Antonio Love MD with Pulmonary Medicine was consulted for further evaluation and management of acute exacerbation of chronic obstructive pulmonary disease. PROCEDURES: 1. A chest x-ray was performed on 08/06/2016, which revealed some prominence of the central markings which appears to be chronic. No other evidence of acute disease. HISTORY AND PHYSICAL EXAMINATION: See admit note. PHYSICAL EXAMINATION PRIOR TO DISCHARGE: Vital Signs: Temperature is 98.1 degrees, heart rate 93, respirations 20, blood pressure 132/62. General: Elderly, no acute distress. Cardiovascular: Regular rate and rhythm. No significant murmurs, rubs, or gallops. Pulmonary: Prolonged expiratory phase. Clear to auscultation bilaterally. Abdomen: Soft , nontender, nondistended. Positive bowel sounds. Extremities: Moves all extremities well. No significant clubbing, cyanosis, or edema. Dermatologic: Evaluation reveals no evidence of rash. LABORATORY DATA PRIOR TO DISCHARGE: None. HOSPITAL COURSE: The patient was admitted as per history and physical examination. Hospital course per condition is as follows. 1. Acute respiratory failure secondary to an acute exacerbation of chronic obstructive pulmonary disease - Upon admission, patient was noted to be profoundly short of breath. Patient was initially treated with bronchodilators, steroids, antibiotics and BiPAP therapy. After the first 24 hours of hospitalization, patient no longer required BiPAP therapy. Thereafter, she was treated with a steroid taper, bronchodilators, and antibiotic therapy. Unfortunately, this proved to be a slow process. At the time of discharge, patient was tolerating oral prednisone. We will discharge her on a slow steroid taper, Xopenex, Atrovent , and levofloxacin therapy. We will monitor her clinical course very closely. 2. Questionable upper airway irritation/obstruction - Patient complained of cough and irritation to the posterior pharynx. I suspect this was candidal in etiology. Patient was started on diflucan and nystatin therapy. She tolerated this well. Patient will be discharged home with 10 additional days of nystatin. 3. Hypogammaglobulinemia - Patient has longstanding disease. She will continue monthly IVIG therapy. 4. Fasting glucose - While hospitalized, patient's blood sugars were elevated while on steroid therapy. With taper, her blood sugars improved. We will follow this as an outpatient as well. 5. Hypothyroidism - Patient was continued on replacement while hospitalized. 6. Profound weakness - while hospitalized, physical therapy was initiated. Patient's condition slowly improved. At time of discharge, she was ambulating independently with a walker. Patient will require physical therapy and home health as an outpatient. DISCHARGE CONDITION: Stable. DISPOSITION: Discharged to home with home health. MEDICATIONS: 1. Xopenex every 4 hours while awake. 2. Levofloxacin 250 mg daily for 5 days. 3. Nystatin swish and swallow 5 mL orally 4 times daily for 10 days. 4. Atrovent every 4 hours while awake. 5. Prednisone taper starting at 60 mg day 1 and decreasing 5 mg until off. 6. Losartan 50 mg daily. 7. Advair 500/50 one puff twice daily. 8. Levothyroxine 88 mcg daily. 9. Tessalon Perles 100 mg 3-4 times daily as needed. FOLLOWUP: The patient is to follow up with me in approximately 1-2 weeks. This in his toes and he does not. cc: Surinder Cherry MD MTDD
== END 2016-08-16 14:58 | disposition home health service (06) ==
LOC: ED 03:49 → EDIPHOLD 06:00 → SUATTDRO 06:00 → 4N 10:49
PROVIDERS: ADMIT Internal Medicine; ATTEND Internal Medicine

== ENCOUNTER 2018-04-26 09:15 | Inpatient (IN) ==
--- NOTE | 2018-04-26 09:53 | PROVIDER DOCUMENTATION ---
HPI-General Adult - General Chief Complaint: Altered Mental Status Stated Complaint: AMS Time Seen by Provider: 04/26/18 09:20 Source: patient Allergies/Adverse Reactions: Patient Allergies Allergy/AdvReac Type Severity Reaction Status Date / Time No Known Allergies Allergy Verified 12/02/16 15:16 Home Medications: Home Medication List Medication Instructions Recorded Confirmed Last Taken Type Benzonatate 100 mg PO 4XDAY PRN 12/02/16 12/02/16 11/28/16 History Cyanocobalamin (Vitamin B-12) 1,000 mcg PO DAILY 12/02/16 12/02/16 12/02/16 History [Vitamin B12] Dicyclomine [Bentyl] 10 mg PO TID AC PRN 12/02/16 12/02/16 Unknown History Fluticasone/Salmet 500/50 INH 1 puff INH RTBID 12/02/16 12/02/16 12/02/16 History [Advair 500/50 Diskus] Guaifenesin E.r. [Mucinex] 600 mg PO BID PRN 12/02/16 12/02/16 11/25/16 History Levalbuterol HCl 1.25 mg IH Q4H 12/02/16 12/02/16 12/02/16 History Levothyroxine [Synthroid] 88 microgm PO DAILY 12/02/16 12/02/16 12/02/16 History Loratadine 10 mg PO DAILY PRN 12/02/16 12/02/16 Unknown History Losartan Potassium 50 mg PO DAILY 12/02/16 12/02/16 12/02/16 History Omeprazole 40 mg PO DAILY 12/02/16 12/02/16 12/02/16 History Prednisone 5 mg PO DAILY 12/02/16 12/02/16 12/02/16 History Acetaminophen [Tylenol] 325 mg PO Q6H PRN PRN #0 03/24/17 12/02/16 11/28/16 Rx Acetaminophen [Tylenol] 650 mg PO Q4H PRN PRN tablet 03/24/17 Unknown Rx CephALEXIN [Keflex] 500 mg PO Q12HR 5 Days capsule 03/24/17 Unknown Rx Docusate Sodium [Colace] 100 mg PO BID capsule 03/24/17 Unknown Rx Fluticasone 50 Mcg Nasal [place] 2 spray SHELDON DAILY PRN PRN bottle 03/24/17 Unknown Rx [Flonase] Ondansetron HCl [Zofran] 4 mg PO Q6H PRN PRN #0 03/24/17 12/02/16 11/28/16 Rx Polyethylene Glycol 3350 [Miralax] 17 gm PO DAILY powder, packet 03/24/17 Unknown Rx Rifaximin [Xifaxan] 550 mg PO BID 14 Days tablet 03/24/17 Unknown Rx Tramadol [Ultram] 50 mg PO BID #42 tab 03/24/17 Unknown Rx Tramadol [Ultram] 50 mg PO Q4-6H PRN PRN #0 tablet 03/24/17 Unknown Rx - History of Present Illness -Gen Adult Nature of Presenting Problems: From assisted living. Apparently has been more confused. There is no history of recent fall. Had similar symptoms last year and was caused by UTI. History from EMS/prison notes. Patient unable to give history. Location of Pain/Injury: reports: none Pain Radiation: reports: no radiation Onset/Duration: reports: 24 hours ago Timing: reports: still present Context/Activities at Onset: reports: none Modifying Factors: improves with: nothing Associated Symptoms: reports: headaches, loss of appetite. denies: chest pain, cough, diarrhea, fever/chills, rash, syncope, vomiting Similar Symptoms Previously?: Yes Recently seen or treated by another doctor?: No Review of Systems - Adult - REVIEW OF SYSTEMS - ADULT Constitutional: reports: no symptoms reported Eyes: reports: no symptoms reported Ears, Nose, Mouth & Throat: reports: no symptoms reported Cardiovascular: reports: no symptoms reported Respiratory: reports: no symptoms reported Gastrointestinal: reports: no symptoms reported Genitourinary: reports: no symptoms reported Musculoskeletal: reports: no symptoms reported Integumentary: reports: no symptoms reported Neurological: reports: see HPI, other Psychiatric: reports: no symptoms reported Endocrine: reports: no symptoms reported Hematologic/Lymphatic: reports: no symptoms reported Allergic/Immunologic: reports: no symptoms reported All Other Systems: Reviewed and Negative Past History - Adult - PAST MEDICAL HISTORY-ADULT Review of Records: reports: Old Records Reviewed, Nursing Assessment Review, Medications Reviewed, Social history reviewed & non-contributory. Major Childhood Illnesses: reports: denies history Cardiovascular: reports: HTN Respiratory: reports: asthma Gastrointestinal: reports: denies history Obstetrical/Gynecological: reports: denies history Genitourinary: reports: denies history Musculoskeletal: reports: denies history Neurological: reports: denies history Endocrine/Immune: reports: denies history Other Conditions: reports: denies history Additional History: Breast cancer - PRIOR SURGERIES/PROCEDURES Surgical/Procedure History: reports: other (Mastectomy ) - PRIOR HOSPITALIZATIONS Prior Hospitalizations: reports: none - IMMUNIZATION STATUS Childhood Immunizations: See Nurse Assessment Flu Vaccine: See Nurse Assessment - FAMILY HISTORY Family History: reviewed, not pertinent - SOCIAL HISTORY Smoking: denies Substance Use: none/never Alcohol Use Frequency: never Living Situation: family Physical Exam-General - PHYSICAL EXAM-ADULT Initial Vital Signs Reviewed: Yes - CONSTITUTIONAL General Appearance: alert, no apparent distress - EYES Eyes: PERRL/EOMI, pink conjunctivae. negative: anisocoria - HEAD, EARS, NOSE, MOUTH & THROAT HENMT: normocephalic/atraumatic, other (dry mm. Superficial abrasion to lower lip) - NECK Neck: supple - RESPIRATORY Respiratory: lungs clear, normal breath sounds - CARDIOVASCULAR Cardiovascular: normal peripheral pulses, regular rate, rhythm - GASTROINTESTINAL (ABDOMEN) Abdominal Exam: non tender, soft - MUSCULOSKELETAL Back Exam: normal inspection, no vertebral tenderness Extremity: normal inspection, no pedal edema, pelvis stable - SKIN Integumentary: normal color, normal turgor, warm/dry - NEUROLOGIC Neurologic: grossly normal, no motor/sensory deficits - PSYCHIATRIC Psych/Mental Status: normal thought content, other (alert to person but not place or time) Progress - PLAN OF CARE/RESULTS Progress/Plan/Lab Results: Vital Signs - 8 hr 04/26/18 09:38 Temperature 98.8 F Pulse Rate 79 Respiratory Rate 18 Blood Pressure 143/85 O2 Sat by Pulse Oximetry 96 Laboratory Results - last 24 hr 04/26/18 09:23 POC Glucose 119 H Orders Category Date Time Status Cardiac Monitoring DIRECTED Care 04/26/18 09:30 Active Saline Loc NOW Care 04/26/18 09:30 Active CHEST-PORTABLE [RAD] Stat Exams 04/26/18 09:[address] HEAD W/O CONTRAST [CT] Stat Exams 04/26/18 09:30 Ordered CBC WITH ELECTRONIC DIFF [HEME] Stat Lab 04/26/18 09:30 Uncollected CK PROFILE [SP CHEM] Stat Lab 04/26/18 09:30 Uncollected COMPREHENSIVE METABOLIC PANEL [CHEM] Stat Lab 04/26/18 09:30 Uncollected FREE T4 Stat Lab 04/26/18 09:30 Uncollected PRO B-NATRIURETIC PEPTIDE Stat Lab 04/26/18 09:30 Uncollected PROTIME WITH INR [COAG] Stat Lab 04/26/18 09:30 Uncollected PTT [COAG] Stat Lab 04/26/18 09:30 Uncollected TROPONIN T Stat Lab 04/26/18 09:30 Uncollected TSH Stat Lab 04/26/18 09:30 Uncollected UA NIMS W/REFLEX CULT [URINALYSIS] Stat Lab 04/26/18 09:30 Uncollected CP/SOB/Palp >45 yrs of Age Stat Oth 04/26/18 09:30 Ordered EKG [EKG] Stat Ther 04/26/18 09:30 Ordered Result Diagrams: 04/26/18 10:30 04/26/18 10:30 - XRAY 1 Impression: See EMR Report ( EXAM: CHEST-PORTABLE 04/26/2018 HISTORY: ams TECHNIQUE: AP portable at 0956 COMMENT: There are some platelike opacities in both lung bases. This has improved since 03/24/2017. The heart size and primary vascularity are within normal limits. IMPRESSION: Improved bibasilar atelectasis.) - CT/MRI 1 Impression: See EMR Report (CT HEAD W/O CONTRAST - 04/26/2018 INDICATION: ams COMPARISON: 12/02/2017 FINDINGS: Stable extensive dilation of the lateral and third ventricles. Stable periventricular white matter hypodensity compatible with chronic microvascular disease or edema. No intracranial mass or hemorrhage. The skull is intact. The sinuses are grossly clear. IMPRESSION: No change from prior. Normal pressure hydrocephalus cannot be excluded.) - CONSULTS/PCP/HOSPITALIST Notification #1 *Consult/PCP/Hospitalist*: Dr. Surinder Cherry Time Discussed: 11:49 Consult Disposition: Admit Departure - Departure Date of Disposition Decision: 04/26/18 Time of Disposition Decision: 11:50 DIAGNOSIS: Atelectasis Altered mental status Qualifiers: Altered mental status type: unspecified Qualified Code(s): R41.82 - Altered mental status, unspecified Leukocytosis Qualifiers: Leukocytosis type: unspecified Qualified Code(s): D72.829 - Elevated white blood cell count, unspecified UTI (urinary tract infection) Qualifiers: Urinary tract infection type: site unspecified Hematuria presence: without hematuria Qualified Code(s): N39.0 - Urinary tract infection, site not specified Lip abrasion Qualifiers: Encounter type: initial encounter Qualified Code(s): S00.511A - Abrasion of lip , initial encounter Disposition: ADMITTED INPATIENT 09 Certified Medical Emergency: Emergent Condition: Stable - Critical Care Note This patient required my direct & personal management of CC.: No Attestation - Physician/ JESÚS Attestation Patient care was provided by Advanced Practice Provider:: Yes Advanced Practice Provider:: Artie Wellington Advanced Practice Provider documentation review:: The Mid-level provider documentation, treatment plan and medical decision making was reviewed by the physician who agrees with all treatment and medical decision making by the MLP. The physician spent face to face time with patient:: Yes Advanced Practice Provider documentation review:: Supervising physician onsite and consulted in the evaluation and care of this patient. The physician did have a face to face encounter with the patient.
--- NOTE | 2018-04-26 10:19 | Diag Imaging Result Doc PS360 ---
EXAM: CHEST-PORTABLE 04/26/2018 HISTORY: ams TECHNIQUE: AP portable at 0956 COMMENT: There are some platelike opacities in both lung bases. This has improved since 03/24/2017. The heart size and primary vascularity are within normal limits. IMPRESSION: Improved bibasilar atelectasis. Electronically signed by Andrés Henson 04/26/2018 10:17 AM
--- NOTE | 2018-04-26 10:38 | Diag Imaging Result Doc PS360 ---
CT HEAD W/O CONTRAST - 04/26/2018 INDICATION: ams COMPARISON: 12/02/2017 FINDINGS: Stable extensive dilation of the lateral and third ventricles. Stable periventricular white matter hypodensity compatible with chronic microvascular disease or edema. No intracranial mass or hemorrhage. The skull is intact. The sinuses are grossly clear. IMPRESSION: No change from prior. Normal pressure hydrocephalus cannot be excluded. This exam was performed using automated exposure control, adjustment of mA or kV according to patient size, and/or use of iterative reconstruction technique Electronically signed by Donald Medina 04/26/2018 10:36 AM
--- NOTE | 2018-04-26 10:42 | ED EKG INTERP ---
This chart was entered by Gemma Sauer Scribe, acting as scribe for Sukhdev Abdi MD. EKG Interpretation - EKG Time of EKG reading by physician:: 09:24 EKG Read and Signed by:: Sukhdev Abdi EKG Interpretation (*Must complete 3 of following elements*): Abnormal Rate: 79 Rhythm: sinus rhythm w/ occasional pvc [place]: normal QRS: normal PA Interval: normal Comments: nonspecific ST abnormality Attestation - Physician/ JESÚS Attestation Patient care was provided by Advanced Practice Provider:: Yes Advanced Practice Provider documentation review:: The Mid-level provider documentation, treatment plan and medical decision making was reviewed by the physician who agrees with all treatment and medical decision making by the MLP. The physician spent face to face time with patient:: No Advanced Practice Provider documentation review:: Supervising physician onsite and consulted in the evaluation and care of this patient. The physician did not have a face to face encounter with the patient. This chart was documented by the indicated scribe, (Gemma Sauer Scribe) and accurately reflects the services I performed and decisions made by Jin au Kent A., MD, as attested by the provider's signature.
--- NOTE | 2018-04-26 10:44 | EKG Report ---
Test Performed on : 04/26/2018 09:24:33 AM Test Reason : ams Blood Pressure : / mmHG Vent. Rate : 079 BPM Atrial Rate : 079 BPM P-R Int : 154 ms QRS Dur : 076 ms QT Int : 412 ms P-R-T Axes : 060 -15 030 degrees QTc Int : 472 ms Sinus rhythm. with occasional premature ventricular complexes. Nonspecific ST abnormality Abnormal ECG When compared with ECG of 12-AUG-2016 06:38, premature ventricular complexes. are now present Unconfirmed Result
[2018-04-26 10:51] LABS: BASO# 0.03 X1000 (0.0-0.2); BASO% 0.2 % (0.0-0.8); EOS# 0.09 X1000 (0.0-0.7); EOS% 0.5 % (0.0-10.0); HEMATOCRIT 45.4 % (37.0-47.0); IMM GRAN# 0.04 X1000 (0.0-0.04); IMM GRAN% 0.2 % (0.0-0.5); LYMPH# 1.76 X1000 (1.2-3.4); LYMPH% 10.5 % (20.5-51.1); MCH 31.1 PG (27-31); MONO# 1.41 X1000 (0.11-0.59); MONO% 8.4 % (1.7-9.3); NEUT# 13.46 X1000 (1.4-6.5); NEUT% 80.2 % (42.2-75.2); PLT 411 X1000 (130-400); RBC 4.83 XMIL (4.2-5.4); RDW 13.5 % (11.5-14.5); WBC 16.79 X1000 (4.8-10.8)
[2018-04-26 10:54] LABS: URINE SOURCE CLEAN CATCH
[2018-04-26] MEDS ORDERED: NS 1,000 ML IV ONE (10:56)
[2018-04-26 10:57] LABS: BILIRUBIN URINE NEGATIVE (NEGATIVE); BLOOD URINE NEGATIVE (NEGATIVE); COLOR YELLOW; GLUCOSE URINE NEGATIVE (NEGATIVE); KETONE URINE NEGATIVE (NEGATIVE); LEUKOCYTES URINE NEGATIVE (NEGATIVE); NITRITE URINE NEGATIVE (NEGATIVE); PH URINE 7.5; PROTEIN URINE NEGATIVE (NEGATIVE); SP GRAVITY URINE 1.003; TURBIDITY URINE CLEAR (CLEAR); UROBILINOGEN URINE NORMAL (NORMAL)
[2018-04-26 10:58] LABS: UR EPITHELIAL CELLS <10 /HPF (<10); URINE BACTERIA 3+ /HPF; URINE RBC <10 /HPF (<10); URINE WBC <10 /HPF (<10)
[2018-04-26 11:01] LABS: INR 0.94; PROTIME 13.3 Seconds (11.0-16.0)
[2018-04-26 11:02] LABS: PTT 29.6 Seconds (22.3-41.8)
[2018-04-26 11:17] LABS: AGAP 15; ALB/GLOB RATIO 1.5; ALBUMIN 4.1 g/dL (3.5-5.0); ALKALINE PHOSPHATASE 84 U/L (32-104); BUN 8 mg/dL (8-22); CALCIUM 9.4 mg/dL (8.8-10.2); CHLORIDE 102 mmol/L (98-107); CK PROFILE 128 U/L (24-173); COSMO 280; CREATININE 0.5 mg/dL (0.5-0.9); ESTIMATED GFR > 60; GLUCOSE 112 mg/dL (70-104); GOT 18 U/L (10-30); GPT 12 U/L (10-36); POTASSIUM 3.5 mmol/L (3.5-5.1); SODIUM 141 mmol/L (136-145); TCO2 24 mmol/L (25-35); TOTAL BILIRUBIN 1.29 mg/dL (0.20-1.00); TOTAL PROTEIN 6.8 g/dL (6.3-8.3)
[2018-04-26] MEDS ORDERED: ROCEPHIN 1 GM in NS 50 ML IV ONE (11:34)
[2018-04-26] MEDS ORDERED: TYLENOL PO PRN (11:50)
[2018-04-26] MEDS ORDERED: ZOFRAN IV PRN (11:50)
[2018-04-26 12:27] LABS: FREE T4 1.54 ng/dL (0.93-1.70); TSH 0.28 uIUmL (0.27-4.20)
[2018-04-26] MEDS ORDERED: TESSALON PO PRN (19:33)
[2018-04-26] MEDS ORDERED: ZOFRAN PO PRN (19:33)
[2018-04-26] MEDS ORDERED: MUCINEX PO PRN (19:33)
[2018-04-26] MEDS ORDERED: CLARITIN PO PRN (19:33)
[2018-04-26] MEDS ORDERED: MIRALAX PO PRN (19:33)
[2018-04-26] MEDS ORDERED: NS 1,000 ML IV SCH (19:45)
[2018-04-26] MEDS: ULTRAM PO SCH (22:21)
[2018-04-26] MEDS: TYLENOL PO SCH (22:21)
[2018-04-26] MEDS: DOXYCYCLINE PO SCH (22:21)
[2018-04-26] MEDS: LOVENOX SUBQ SCH (22:27)
[2018-04-26] MEDS: XOPENEX NEB INH SCH (23:45)
[2018-04-26] MEDS: ATROVENT NEB INH SCH (23:45)
--- NOTE | 2018-04-27 02:23 | HISTORY AND PHYSICAL ---
PRIMARY CARE PHYSICIAN: Dr. Surinder Cherry. CHIEF COMPLAINT: Alteration of mental status. HISTORY OF PRESENT ILLNESS: An 88-year-old white female, with a complicated past medical history, who presents for evaluation of above-mentioned symptoms. Unfortunately, the patient's history is quite limited. The patient is alone, without family members present. I attempted to contact patient's family via phone, but was unsuccessful. Per report, the patient was living at her assisted living facility without incident. Within the last 24 hours, the patient has developed increasing confusion. There has been no evidence of fevers, chills, nausea, vomiting, neurological deficits, dysuria, hematuria, pyuria, or recent falls. The patient does complain of a mild, intermittent cough. Because of the patient's mental status change, she was transported to [facility] [place] for further evaluation and management. Upon arrival, full evaluation was pursued. Laboratory data returned significant for an elevated white blood cell count of 16.79. Urinalysis suggested 3+ bacteria, but negative nitrite and leukocyte esterase. CT scan of the head revealed no change from prior. Chest x-ray suggested atelectasis. Because of patient's mental status change and elevated white blood cell count, the patient will be admitted to the hospital for full evaluation and management. PAST MEDICAL HISTORY: 1. [id number] cholecystitis, status post a laparoscopic cholecystectomy in 2010. 2. Asthma. 3. Depression. 4. Reflux disease. 5. Hypertension. 6. History of a traumatic distal right femur fracture, status post open reduction and internal fixation in 2005. 7. Hyperlipidemia. 8. Hypogammaglobulinemia. 9. Hypothyroidism. 10. Impaired fasting glucose. 11. Abnormal skin examination, with multiple actinic keratoses and seborrheic keratoses. 12. Chronic low back pain, status post multiple surgical interventions. 13. Left-sided breast cancer, diagnosed in 1985, status post mastectomy and reconstruction, followed by chemotherapy. 14. Osteoarthritis, status post right total knee arthroplasty in 2001. 15. Osteopenia. 16. Hypertriglyceridemia. 17. Urinary incontinence. 18. History of endometrioid adenocarcinoma, status post MADHURI/BSO in 2013. CURRENT MEDICATIONS: 1. Imodium AD 3 times daily as needed. 2. Benzonatate 100 mg 3 times daily as needed. 3. Polyethylene glycol 17 ounces in 8 ounces of juice daily as needed. 4. 2 L of oxygen at bedtime. 5. Acetaminophen 325 mg 4 times daily. 6. Ipratropium bromide 1 neb every 4 hours. 7. Xopenex 1 neb every 4 hours. 8. Tramadol 50 mg 4 times daily. 9. Loratadine 10 mg daily as needed. 10. Zofran 4 mg every 6 hours as needed. 11. Senna S 1 tab daily as needed. 12. Levothyroxine 88 mcg daily. 13. Losartan 50 mg daily. 14. Omeprazole 40 mg daily. 15. Prednisone 5 mg daily. 16. Vitamin B12 1000 mcg daily. 17. Colace 100 mg daily. 18. Advair 500/50 one puff twice daily. 19. Fluticasone nasal spray 2 sprays each nostril daily. ALLERGIES: Patient states she is allergic to Augmentin, Bactrim, Boniva, cefdinir, Celebrex, Crestor, doxycycline, cyclin, Fosamax, lovastatin, and sulfa, but tolerates IV medications. SOCIAL HISTORY: The patient is a previous smoker, having smoked 1-1/2 pack per day for 24 years. She stopped in 1961. She denies alcohol or illicit drug use. She is a homemaker. She previously enjoyed playing golf and bridge. She does not exercise routinely. FAMILY HISTORY: Patient's father passed at age 32 secondary to an electrical accident. Patient's mother passed at age 57 secondary to complications of breast cancer. REVIEW OF SYSTEMS: A 12-point review of systems was performed. Pertinent positives and negatives noted in the history of present illness. PHYSICAL EXAMINATION: VITAL SIGNS: Temperature 98.5 degrees, heart rate 80, respirations 16, blood pressure is 143/64. GENERAL: Elderly. No acute distress. HEENT: Normocephalic, atraumatic. Pupils equal, round, reactive to light. Extraocular muscles intact. Sclerae anicteric. [place] conjunctivae. Oral and nasopharynx clear, without exudate. NECK: Supple. No lymphadenopathy. No thyromegaly. No bruits auscultated. CARDIOVASCULAR: Regular rate and rhythm. No significant murmurs, rubs, or gallops. PULMONARY: Minimal crackles at bilateral bases. Adequate air movement. ABDOMEN: Soft, nontender, nondistended. Positive bowel sounds. EXTREMITIES: Moves all extremities well. No significant clubbing, cyanosis, or edema. NEUROLOGIC: Cranial nerves 2-12 grossly intact. Motor and sensory grossly intact. PSYCHOLOGIC: Patient is pleasantly confused. LABORATORY DATA: White blood cell count 16.79, hemoglobin 15.0, hematocrit 45.4, platelet count 411,000. PT 13.3, INR 0.94, PTT is 29.6. Sodium 141, potassium 3.5, chloride 102, bicarb 24, BUN 8, creatinine 0.5, glucose 112, calcium 9.4. Total bilirubin 1.24, total protein 6.8, albumin 4.1, alkaline phosphatase 84, AST 18, ALT 12. TSH 0.28, free T4 1.54. Urinalysis revealed 3+ bacteria, with negative leukocyte esterase and negative nitrite. ASSESSMENT AND PLAN: An 88-year-old, white female with a complicated past medical history as noted, who presents for evaluation of alteration of mental status. The patient is alert to person only. Examination does not reveal any neurological deficits. Evaluation thus far has revealed only 3+ bacteria, without leukocytes present in the urine, chronic intracranial changes per CT scan, and possible atelectasis of the lungs. White blood cell count returned elevated. At this point, the patient is effectively immunocompromised, having taken chronic prednisone. She also has a history of immunoglobulin deficiency. We will treat the patient aggressively for possible underlying infections. We will follow her clinical course closely. 1. Admit to General Medicine. 2. Alteration of mental status - At this point, the most likely source is urine or pulmonary. We will check blood cultures and urine cultures. We will place the patient on normal saline at KVO. We will empirically place patient on Rocephin and doxycycline therapy. We will follow her clinical course closely. 3. Leukocytosis - Once again, this likely is secondary to either pulmonary or urinary infection. We will treat patient empirically and follow cultures as described. 4. Weakness - We will initiate physical therapy in the a.m. We will encourage out of bed. 5. Reflux disease - We will continue patient on omeprazole therapy. 6. Hyperlipidemia - We will remain aware. 7. History of asthma - We will continue patient on current nebulized intervention. 8. Hypothyroidism - We will continue patient on replacement. TSH is acceptable. 9. Hypogammaglobulinemia - Patient has been treated with IVIG in the past. She has not required it in quite some time. We will remain aware. The patient may be immunocompromised. 10. Fluid, electrolytes, nutrition - We will monitor electrolytes. Normal saline at KVO. Regular diet. 11. Prophylaxis. Patient will be placed on subcu Lovenox. cc: Surinder Cherry MD
[2018-04-27] MEDS: ATROVENT NEB INH SCH ×6 (03:50→23:35)
[2018-04-27] MEDS: XOPENEX NEB INH SCH ×6 (03:50→23:35)
[2018-04-27] MEDS ORDERED: PNEUMOVAX 23 IM ONE (05:36)
[2018-04-27] MEDS: SYNTHROID PO SCH (06:57)
[2018-04-27] MEDS: PRILOSEC PO SCH (06:57)
[2018-04-27 07:16] LABS: BASO# 0.05 X1000 (0.0-0.2); BASO% 0.5 % (0.0-0.8); EOS# 0.16 X1000 (0.0-0.7); EOS% 1.6 % (0.0-10.0); HEMATOCRIT 43.9 % (37.0-47.0); HEMOGLOBIN 14.5 g/dL (12.0-16.0); IMM GRAN# 0.02 X1000 (0.0-0.04); IMM GRAN% 0.2 % (0.0-0.5); LYMPH# 3.18 X1000 (1.2-3.4); LYMPH% 31.5 % (20.5-51.1); MCH 31.3 PG (27-31); MCV 94.8 FL (81-99); MONO# 1.27 X1000 (0.11-0.59); MONO% 12.6 % (1.7-9.3); MPV 10.3 FL (7.4-10.4); NEUT% 53.6 % (42.2-75.2); PLT 386 X1000 (130-400); RBC 4.63 XMIL (4.2-5.4); RDW 13.4 % (11.5-14.5); WBC 10.08 X1000 (4.8-10.8)
[2018-04-27] MEDS: ADVAIR 500/50 DISKUS INH SCH ×2 (07:38→19:35)
[2018-04-27 07:51] LABS: AGAP 14; ALB/GLOB RATIO 1.7; ALKALINE PHOSPHATASE 80 U/L (32-104); BUN 10 mg/dL (8-22); CALCIUM 8.9 mg/dL (8.8-10.2); CHLORIDE 106 mmol/L (98-107); COSMO 286; CREATININE 0.6 mg/dL (0.5-0.9); ESTIMATED GFR > 60; GLUCOSE 93 mg/dL (70-104); GOT 19 U/L (10-30); GPT 12 U/L (10-36); POTASSIUM 3.1 mmol/L (3.5-5.1); SODIUM 144 mmol/L (136-145); TCO2 24 mmol/L (25-35); TOTAL BILIRUBIN 1.69 mg/dL (0.20-1.00); TOTAL PROTEIN 6.4 g/dL (6.3-8.3)
[2018-04-27] MEDS ORDERED: KLOR-CON PO ONE (08:39)
[2018-04-27] MEDS: PREDNISONE PO SCH (10:24)
[2018-04-27] MEDS: COLACE PO SCH (10:24)
[2018-04-27] MEDS: VITAMIN B-12 PO SCH (10:25)
[2018-04-27] MEDS: TYLENOL PO SCH ×4 (10:25→22:32)
[2018-04-27] MEDS: DOXYCYCLINE PO SCH ×2 (10:25→22:31)
[2018-04-27] MEDS: COZAAR PO SCH (10:25)
[2018-04-27] MEDS: ULTRAM PO SCH ×4 (10:25→22:35)
[2018-04-27] MEDS: FLONASE NAS SCH (10:27)
[2018-04-27] MEDS: ROCEPHIN 1 GM in NS 50 ML IV SCH (15:41)
--- NOTE | 2018-04-27 16:03 | Diag Imaging Result Doc PS360 ---
EXAM: CT THORAX/ABD/PELVIS W/O CON INDICATION: AMS/ leukocytosis TECHNIQUE: This exam was performed using automated exposure control, adjustment of mA or kV according to patient size, and/or use of iterative reconstruction technique. COMPARISON: CT chest dated 06/16/[address] abdomen and pelvis dated 12/02/2016 FINDINGS: CHEST: There is a focal opacity with spiculation involving the left upper lobe measuring 1.8 x 1.3 cm axially. This can be seen on previous studies as far back as 2010. However, it does appear more prominent on the current study measuring 1.8 x 1.3 cm (1.0 x 1.1 cm previously). This may represent progressive focal scarring. However, neoplasm cannot completely be excluded. There is subsegmental atelectasis at both lung bases. There is no pleural fluid collection and no pneumothorax. There is no evidence of significant mediastinal lymphadenopathy as imaged with unenhanced CT. There is a stable ruptured left breast implant. Spinal Bauman rods are noted. There are degenerative changes throughout the spine. The bones are osteopenic and there are compression deformities involving multiple thoracic bodies of unknown acuity. ABDOMEN/PELVIS: There has been a prior cholecystectomy. The liver, spleen, pancreas, and adrenal glands are essentially unremarkable. The kidneys and urinary bladder are unremarkable. There has been a prior hysterectomy. There is uncomplicated diverticulosis coli. The appendix is normal. The remainder of the GI tract is essentially unremarkable. The bones are osteopenic and there are multiple lumbar spine compression deformities of unknown acuity. IMPRESSION: 1.Spiculated nodule in the left upper lobe that can be seen on many previous studies dating back to 2010. However, during the interval it has increased in size. Please see above discussion. 2.Osteopenia and multiple compression deformities throughout the spine of unknown acuity. 3.Other external/nonacute findings detailed above. Electronically signed by Qasim Ang 04/27/2018 4:01 PM
[2018-04-27] MEDS: LOVENOX SUBQ SCH (22:32)
--- NOTE | 2018-04-28 02:09 | PROGRESS NOTE ---
DATE: 04/27/2018 SUBJECTIVE: The patient was seen this morning. At that time, she continued to be pleasantly confused. Because of no definitive source of her alteration of mental status, further evaluation was deemed warranted. CT scans of the chest, abdomen, and pelvis were performed. A spiculated nodule in the left upper lobe was noted, which was present in 2010. This was, however, increased in size. Osteopenia and multiple compression fractures were noted through the spine. No acute abnormalities were identified. Throughout the day, the patient did reasonably well, with exception to her considerable confusion. This evening, once again, the patient is pleasant, but confused. There has been no evidence of fevers, chills, nausea, vomiting, shortness of breath, or chest discomfort. OBJECTIVE: Vital Signs: T-max 99.2 degrees, heart rate 70 to 84, respirations 15 to 20, blood pressure 100 to 146 over 44 to 94. General: Well-nourished, well-developed, elderly. No acute distress. Cardiovascular: Regular rate and rhythm. No significant murmurs, rubs, or gallops. Pulmonary: Clear to auscultation bilaterally. Abdomen: Soft, nontender, nondistended. Positive bowel sounds. Extremities: Moves all extremities well. No significant clubbing, cyanosis, or edema. Dermatologic: Evaluation reveals no evidence of rash. LABORATORY DATA: White blood cell count 10.08, hemoglobin 14.5, hematocrit 43.9, platelet count 386,000. Sodium 144, potassium 3.1, chloride 106, bicarb 24, BUN 10, creatinine 0.6, glucose 93, calcium 8.9. Total bilirubin 1.69, total protein 6.4, albumin 4.0, alkaline phosphatase 80, AST 19, ALT 12. ASSESSMENT AND PLAN: 1. Alteration of mental status - At this point, a definitive etiology has not been identified. His urine culture requires more intubation, suggesting a possible underlying urinary tract infection. A pneumonia has been ruled out with CT scan findings. Additionally, with mental status changes, but no evidence of somnolence or hemodynamic abnormalities, I also am concerned this may represent a primary neurologic issue, including a stroke. We will continue Rocephin therapy. We will discontinue doxycycline. We will continue IV fluids. Throughout the weekend, we will determine if further neurologic evaluation is warranted. 2. Leukocytosis - This has resolved. This likely represented infection versus a demargination. We will remain aware. 3. Weakness - Physical therapy was initiated. Unfortunately, she remains very weak. The patient may require rehabilitation at discharge. 4. Reflux disease - We will continue omeprazole therapy. 5. Hyperlipidemia - We will remain aware. 6. Hypothyroidism - Patient's TSH is acceptable. We will continue replacement. 7. Hypogammaglobulinemia - We will remain aware. She has been treated with IVIG in the past. There is no evidence of a immunologic dysfunction at present time. 8. Spiculated nodule in the left upper lobe - With the patient's multiple medical conditions, at this point, intervention is not deemed warranted. I discussed this with patient's family, and patient's daughter agrees. 9. Disposition - At this point, patient continues to require [facility] care in a hospital setting. We will plan discharge home once appropriate. cc: Surinder Cherry MD
[2018-04-28] MEDS: ATROVENT NEB INH SCH ×6 (03:35→23:19)
[2018-04-28] MEDS: XOPENEX NEB INH SCH ×6 (03:35→23:19)
[2018-04-28] MEDS: PRILOSEC PO SCH ×2 (05:39→07:42)
[2018-04-28] MEDS: SYNTHROID PO SCH ×2 (05:39→07:42)
[2018-04-28] MEDS: ADVAIR 500/50 DISKUS INH SCH ×2 (08:05→19:35)
[2018-04-28] MEDS: DOXYCYCLINE PO SCH ×2 (08:29→21:53)
[2018-04-28] MEDS: VITAMIN B-12 PO SCH (08:29)
[2018-04-28] MEDS: PREDNISONE PO SCH (08:29)
[2018-04-28] MEDS: COZAAR PO SCH (08:29)
[2018-04-28] MEDS: TYLENOL PO SCH ×4 (08:29→21:53)
[2018-04-28] MEDS: COLACE PO SCH (08:29)
[2018-04-28] MEDS: ULTRAM PO SCH ×4 (08:29→21:53)
[2018-04-28] MEDS: FLONASE NAS SCH (08:30)
--- NOTE | 2018-04-28 13:26 | PROGRESS NOTE ---
DATE: 04/28/2018 SUBJECTIVE: This morning, patient continues to state she feels reasonably well. She complains only of cough and congestion. Unfortunately, she does continue to demonstrate considerable confusion. She is alert to person, but not place or situation. There has been no evidence of fevers, chills, nausea, vomiting, shortness of breath, or chest discomfort. Her p.o. intake is adequate. OBJECTIVE: Vital Signs: T-max 99.2, heart rate 69 to 89, respirations 16 to 20, blood pressure 100-145/44- 72. General: No acute distress. Cardiovascular: Regular rate and rhythm. No significant murmurs, rubs or gallops. Pulmonary: Clear to auscultation bilaterally. Abdomen: Soft, nontender, nondistended. Positive bowel sounds. Extremities: Moves all extremities well. No significant clubbing, cyanosis or edema. Dermatologic: Evaluation reveals no evidence of rash. LABORATORY DATA: None. ASSESSMENT AND PLAN: 1. Alteration of mental status - Patient does appear to be slightly improved from yesterday, but remains quite confused. Her urine culture thus far is growing a gram-positive cocci. Certainly, this could be the source; however, an acute neurological issue including a stroke also is to be considered. For now, we will continue Rocephin therapy and IV fluids. We will continue to follow patient clinically. 2. Leukocytosis - This likely represented demargination versus underlying infection. The patient will be treated as described above. 3. Profound weakness - Physical therapy was initiated on . She remains weak, unable to ambulate independently. We will continue physical therapy and consider whether rehabilitation is necessary at discharge. 4. Reflux disease - We will continue omeprazole therapy. 5. Hypothyroidism - We will continue replacement. 6. Hypogammaglobulinemia - We will remain aware in the setting of potential infection. At this point, this appears to be noncontributory. 7. Speculated nodule of the left upper lobe - This is slightly increased in size from 2010. At this point, the risk of intervention outweighs the benefits. Patient's family agrees. 8. Disposition - At this point, patient continues to require [facility] care in a hospital setting. We will plan to discharge home once appropriate. cc: Surinder Cherry MD
[2018-04-28] MEDS: ROCEPHIN 1 GM in NS 50 ML IV SCH (15:38)
[2018-04-28] MEDS: LOVENOX SUBQ SCH (21:54)
[2018-04-29] MEDS: XOPENEX NEB INH SCH ×6 (03:20→23:35)
[2018-04-29] MEDS: ATROVENT NEB INH SCH ×6 (03:20→23:35)
[2018-04-29] MEDS: PRILOSEC PO SCH ×2 (05:49→07:06)
[2018-04-29] MEDS: SYNTHROID PO SCH ×2 (05:50→07:06)
[2018-04-29] MEDS ORDERED: BLISTEX MEDICATED BERRY LIP BALM TOP PRN ×2 (06:59→07:08)
[2018-04-29] MEDS: ADVAIR 500/50 DISKUS INH SCH ×2 (08:32→20:00)
[2018-04-29] MEDS: COLACE PO SCH (08:49)
[2018-04-29] MEDS: PREDNISONE PO SCH (08:49)
[2018-04-29] MEDS: VITAMIN B-12 PO SCH (08:49)
[2018-04-29] MEDS: TYLENOL PO SCH ×4 (08:49→22:49)
[2018-04-29] MEDS: DOXYCYCLINE PO SCH ×2 (08:49→22:49)
[2018-04-29] MEDS: COZAAR PO SCH (08:49)
[2018-04-29] MEDS: ULTRAM PO SCH ×4 (08:49→22:49)
[2018-04-29] MEDS: FLONASE NAS SCH (08:50)
--- NOTE | 2018-04-29 12:35 | PROGRESS NOTE ---
DATE: 04/29/2018 SUBJECTIVE: The patient is up and alert this morning. She is oriented to person and place. 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 She did, however, know that I was a physician. This is an improvement from admission. Her p.o. intake remains reasonably controlled. She has a intermittent cough, but otherwise denies fevers, chills, nausea, vomiting, shortness of breath, or chest discomfort. OBJECTIVE: Vital Signs: T-max 98.3 degrees, heart rate 54 to 81, respirations 18 to 20, blood pressure 117 to 134/50 to 64. General: No acute distress. Cardiovascular: Regular rate and rhythm. No significant murmurs, rubs, or gallops. Pulmonary: Clear to auscultation anteriorly. Abdomen: Soft, nontender, nondistended. Positive bowel sounds. Extremities: Moves all extremities well. No significant clubbing, cyanosis, or edema. Dermatologic: Evaluation reveals no evidence of rash. LABORATORY DATA: None. ASSESSMENT AND PLAN: 1. Alteration of mental status--patient has achieved some improvement from yesterday. Thus far, abnormalities include only a positive urine culture for gram-positive cocci. We will also remain aware that an acute neurological event, including stroke, could be playing a role. For now, we will continue Rocephin and intravenous fluids. We will follow patient's urine cultures. 2. Leukocytosis--the patient has achieved improvement with antibiotic intervention. Question is raised whether this was secondary to an underlying infection or demargination. We will continue aggressive management as noted. 3. Profound weakness--the patient is being treated with physical therapy. She remains unable to ambulate independently. The question will be raised whether patient will be a candidate for assisted living with home health or if she needs rehabilitation at discharge. We will address this in the a.m. 4. Reflux disease--we will continue omeprazole therapy. We will encourage aspiration precautions. 5. Hypothyroidism--we will continue patient on replacement. 6. Hypogammaglobulinemia--in the setting of a potential infection, we will remain aware. At the present time, this does not appear to be contributory. 7. A spiculated nodule in the left upper lobe--this has increased in size from 2010. At this point, the risk of further evaluation and intervention outweighs the benefits. The patient's daughter agrees with this management. 8. Disposition--at this point, patient continues to require [facility] care in a hospital setting. We will plan discharge home once appropriate. cc: Surinder Cherry MD
[2018-04-29] MEDS: ROCEPHIN 1 GM in NS 50 ML IV SCH (15:41)
[2018-04-29] MEDS: LOVENOX SUBQ SCH (22:50)
[2018-04-30] MEDS: ATROVENT NEB INH SCH ×6 (03:10→22:49)
[2018-04-30] MEDS: XOPENEX NEB INH SCH ×6 (03:10→22:49)
[2018-04-30] MEDS: SYNTHROID PO SCH (06:02)
[2018-04-30] MEDS: PRILOSEC PO SCH (06:03)
[2018-04-30 06:47] LABS: BASO# 0.06 X1000 (0.0-0.2); BASO% 0.6 % (0.0-0.8); EOS# 0.29 X1000 (0.0-0.7); EOS% 2.8 % (0.0-10.0); HEMATOCRIT 43.3 % (37.0-47.0); HEMOGLOBIN 14.4 g/dL (12.0-16.0); IMM GRAN# 0.03 X1000 (0.0-0.04); IMM GRAN% 0.3 % (0.0-0.5); LYMPH% 29.5 % (20.5-51.1); MCH 31.7 PG (27-31); MCHC 33.3 g/dL (33-37); MCV 95.4 FL (81-99); MONO# 0.91 X1000 (0.11-0.59); MONO% 8.7 % (1.7-9.3); NEUT# 6.12 X1000 (1.4-6.5); NEUT% 58.1 % (42.2-75.2); PLT 395 X1000 (130-400); RBC 4.54 XMIL (4.2-5.4); RDW 13.5 % (11.5-14.5); WBC 10.51 X1000 (4.8-10.8)
[2018-04-30 07:00] LABS: AGAP 12; BUN 13 mg/dL (8-22); CALCIUM 9.3 mg/dL (8.8-10.2); CHLORIDE 104 mmol/L (98-107); COSMO 281; CREATININE 0.6 mg/dL (0.5-0.9); ESTIMATED GFR > 60; GLUCOSE 96 mg/dL (70-104); MAGNESIUM 1.9 mg/dL (1.5-2.7); POTASSIUM 3.7 mmol/L (3.5-5.1); SODIUM 141 mmol/L (136-145); TCO2 25 mmol/L (25-35)
[2018-04-30] MEDS: ADVAIR 500/50 DISKUS INH SCH ×2 (08:15→19:40)
[2018-04-30] MEDS: VITAMIN B-12 PO SCH (08:57)
[2018-04-30] MEDS: COZAAR PO SCH (08:57)
[2018-04-30] MEDS: PREDNISONE PO SCH (08:58)
[2018-04-30] MEDS: TYLENOL PO SCH ×4 (08:58→22:29)
[2018-04-30] MEDS: DOXYCYCLINE PO SCH ×2 (08:58→22:29)
[2018-04-30] MEDS: COLACE PO SCH (08:58)
[2018-04-30] MEDS: ULTRAM PO SCH ×4 (08:58→22:32)
[2018-04-30] MEDS: FLONASE NAS SCH (09:01)
[2018-04-30] MEDS: ROCEPHIN 1 GM in NS 50 ML IV SCH (15:19)
--- NOTE | 2018-04-30 20:57 | PROGRESS NOTE ---
DATE: 04/30/2018 SUBJECTIVE: Overall, patient's condition continues to improve. She was alert this morning upon my arrival. Unfortunately, she continues to have some confusion. She currently is being treated for an underlying urinary tract infection. This evening, patient states she had a good day. Once again, she is alert to person and place, but is unable to remember my name. She continues to work with physical therapy. She remains very weak. OBJECTIVE: T-max 98.9 degrees, heart rate 77 to 84, respirations 16 to 20, blood pressure 127 to 141 over 60 to 82.General: Elderly, no acute distress. Cardiovascular: Regular rate and rhythm. No significant murmurs, rubs, or gallops. Pulmonary: Clear to auscultation bilaterally. Abdomen: Soft, nontender, nondistended. Positive bowel sounds. Extremities: Moves all extremities well. No significant clubbing, cyanosis, or edema. Dermatologic: Evaluation reveals no evidence of rash. LABORATORY DATA: White blood cell count 10.51, hemoglobin 14.4, hematocrit 43.3, platelet count 395,000. Sodium 141, potassium 3.7, chloride 104, bicarb 25, BUN 13, creatinine 0.6, glucose 96, calcium 9.3, magnesium 1.9. ASSESSMENT AND PLAN: 1. Alteration of mental status-patient has achieved some improvement from admission, although not back to baseline. I discussed this in detail with patient's daughter. At this point, with her confusion, I do not expect she would tolerate an MRI evaluation. For now, we will continue supportive care. We will remain aware patient certainly could have suffered a neurological event. We will continue treating urinary tract infection as below. 2. Urinary tract infection-patient's urine culture revealed strep gallolyticus sensitive to Rocephin therapy. We will continue this for now. 3. Leukocytosis-this likely was secondary to a combination of acute infection and demargination. Patient has achieved improvement. 4. Profound weakness-the patient is being treated with physical therapy. She likely will benefit from rehabilitation at discharge. 5. Reflux disease-we will continue omeprazole therapy. 6. Hypothyroidism-the patient is well-controlled on replacement. 7. Hypogammaglobulinemia-patient has not required intravenous immunoglobulin intervention in quite some time. We will remain aware. 8. Spiculated nodule in the left upper lobe of the lung-this has increased in size since 2010. I discussed this in detail with patient's daughter. At this point, no intervention has been recommended. 9. Disposition-at this point, patient continues to require [facility] care in a hospital setting. We will plan discharge home once appropriate. cc: Surinder Cherry MD
[2018-04-30] MEDS: LOVENOX SUBQ SCH (22:29)
[2018-05-01] MEDS: ATROVENT NEB INH SCH ×5 (03:10→19:54)
[2018-05-01] MEDS: XOPENEX NEB INH SCH ×5 (03:10→19:54)
[2018-05-01] MEDS: PRILOSEC PO SCH ×2 (05:47→06:06)
[2018-05-01] MEDS: SYNTHROID PO SCH ×2 (05:47→06:07)
[2018-05-01] MEDS: ADVAIR 500/50 DISKUS INH SCH ×2 (08:05→19:53)
[2018-05-01] MEDS: ULTRAM PO SCH ×3 (09:03→18:44)
[2018-05-01] MEDS: DOXYCYCLINE PO SCH (09:04)
[2018-05-01] MEDS: COZAAR PO SCH (09:04)
[2018-05-01] MEDS: COLACE PO SCH (09:04)
[2018-05-01] MEDS: PREDNISONE PO SCH (09:05)
[2018-05-01] MEDS: TYLENOL PO SCH ×3 (09:05→18:44)
[2018-05-01] MEDS: VITAMIN B-12 PO SCH (09:05)
[2018-05-01 15:39] VITALS: BP 124/52
--- NOTE | 2018-05-01 16:40 | DISCHARGE SUMMARY ---
ADMISSION DATE: 04/26/2018 DISCHARGE DATE: 05/01/2018 ADMISSION DIAGNOSIS: Alteration of mental status. DISCHARGE DIAGNOSES: 1. Alteration of mental status, improved but not back to baseline. 2. Urinary tract infection with Streptococcus gallolyticus subspecies pasteurianus. 3. Leukocytosis, resolved. 4. Profound weakness, improving, but not back to baseline with physical therapy. 5. Reflux disease, present on arrival. 6. Hypothyroidism, present on arrival. 7. Hypogammaglobulinemia, present on arrival. 8. Spiculated nodule in the left upper lobe increased in size since 2010. Left upper lobe of the lung increase in size since 2010. CONSULTATIONS: None. PROCEDURES: 1. Chest x-ray was performed on 04/26/2018 which revealed improved bibasilar atelectasis as compared to chest x-ray in March 2017. 2[address] scan of the head was performed on 04/26/2018 which revealed no change from prior. Normal pressure hydrocephalus cannot be completely excluded. 3. CT scan of the chest, abdomen, and pelvis were performed on 04/26/2018 which revealed a spiculated nodule in the left upper lobe of the lung that can be seen on many previous studies dating back to 2010. However, during the interval it has increased in size. Osteopenia and multiple compression deformities throughout the spine of unknown acuity. HISTORY AND PHYSICAL EXAMINATION: See admit note. PHYSICAL EXAMINATION PRIOR TO DISCHARGE: Vital Signs: Temperature 98.1, heart rate 76, respirations 16, blood pressure is 146/53. General: Elderly. No acute distress. Cardiovascular: Regular rate and rhythm. No significant murmurs, rubs or gallops. Pulmonary: Clear to auscultation bilaterally. Abdomen: Soft, nontender, nondistended. Positive bowel sounds. Extremities: Moves all extremities well. No significant clubbing, cyanosis or edema. Dermatologic: Reveals no evidence of rash. LABORATORY DATA: Prior to discharge: None. HOSPITAL COURSE: Patient was admitted as per history and physical examination. Hospital course per condition is as follows: 1. 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 Throughout hospitalization, patient has achieved some improvement, although not resolution to baseline. Treatment of her underlying urinary tract infection as described below has proved ineffective, but a mild to moderate deficit remains. I have discussed this in detail with patient and patient's family. We discussed further neurologic imaging, including an MRI. At this point, with her mild confusion, we were concerned that this would not be possible secondary to her inability to lie supine for a prolonged period of time. Additionally, we discussed the utility of this and the unlikely change in care regardless of what is found. For now, we will continue supportive care. Patient's family understands the patient could have suffered a mild stroke. 2. Urinary tract infection - As described above, patient grew Streptococcus gallolyticus subspecies pasteurianus. Patient was treated with antibiotic therapy while hospitalized. She will complete an additional 3 days of amoxicillin as an outpatient. 3. Leukocytosis - Upon admission, patient was noted to have a leukocytosis, likely secondary to her urinary tract infection. I cannot rule out demargination as well. With treatment, her white blood cell count has normalized. We will follow this. 4. Profound weakness - The patient has advanced osteoarthritic changes and a gradual decline over the course of the last several years. With her acute illness, she has developed increasing weakness. At this point, she was unable to return to her assisted living secondary to her profound weakness. We will pursue rehabilitation with plans to return to assisted living once able. This will be followed as well. 5. Reflux disease - The patient was continued on omeprazole therapy while hospitalized with adequate response. 6. Hypothyroidism - The patient is well controlled on her current replacement. 7. Hypogammaglobulinemia - This diagnosis is historical. She has been treated with IVIG in the past. Since being in assisted living several years ago, she has not required routine intervention. We will remain aware, especially in the setting of a possible infection. 8. Spiculated nodule of the left upper lobe of the lung - As described per CAT scan report above, patient has demonstrated an increase in size since 2010. I discussed this in detail with patient's family. At this point, aggressive evaluation and intervention is not deemed warranted. We will continue supportive care for now. Depending on her progress at rehabilitation, we will consider whether repeat CT scan is appropriate in the future. DISCHARGE CONDITION: Stable. DISPOSITION: Discharged to rehabilitation. MEDICATIONS: 1. Acetaminophen 500 mg 4 times daily. 2. Benzonatate 100 mg 4 times daily as needed. 3. Vitamin B12 1000 mcg daily. 4. Blistex lip balm as needed. 5. Colace 100 mg daily. 6. Fluticasone nasal spray, 2 sprays each nostril daily as needed. 7. Advair 500/50 one puff twice daily. 8. Guaifenesin 600 mg twice daily. 9. Atrovent neb every 4 hours while awake. 10. Levalbuterol neb every 4 hours while awake. 11. Levothyroxine 88 mcg daily. 12. Loratadine 10 mg daily as needed. 13. Losartan 50 mg daily. 14. Omeprazole 40 mg daily. 15. Zofran 4 mg every 6 hours as needed. 16. Polyethylene glycol 17 g in 8 ounces of juice daily as needed. 17. Prednisone 5 mg daily. 18. Tramadol 50 mg 4 times daily. 19. Amoxicillin 500 mg 3 times daily for 3 additional days. 20. Dicyclomine 10 mg 3 times daily as needed. FOLLOWUP: The patient is to follow up with me upon discharge from rehabilitation. cc: Surinder Cherry MD
== END 2018-05-01 19:00 | DRG 689 ==
LOC: SUPCPDRO → ED 09:15 → 4N 13:40
PROVIDERS: ADMIT Internal Medicine; ATTEND Internal Medicine
CPT/HCPCS: 70450; 71010; 71045; 71250; 74176; 80048; 80053; 81001; 82550; 82948; 83605; 83735; 83880; 84439; 84443; 84484; 85025; 85610; 85730; 87040; 87077; 87088; 87186; 93005; 94640; 94761; 96361; 96365; 97110; 97162; 97530; 99285; A9270; J0696; J1650; J7030; J7506; J7512; XXXXX